=== PATIENT | female | born 1950 | race Caucasian/White ===

== ENCOUNTER 2022-12-19 09:30 | Outpatient (REF) | payer MEDICARE, SELFPAY | END 2022-12-19 09:31 | disposition home or self-care (01) | LOC: HO.HOSX 09:30 | PROVIDERS: Visit Provider Physical Medicine & Rehabilitation | DX: M47.816 Spondylosis without myelopathy or radiculopathy, lumbar region (principal); M53.3 Sacrococcygeal disorders, not elsewhere classified; M79.18 Myalgia, other site | CPT/HCPCS: 20553; 72100 ==

== ENCOUNTER 2022-12-25 10:15 | Outpatient (AMB) | payer MEDICARE, SELFPAY ==
--- NOTE | 2022-12-25 10:17 | MHC.OFFVIS ---
Intake Vital Signs 12/25/22 10:24 Height 5 ft 2 in Weight 107 lb 4 oz BMI 19.6 BP 140/76 H Blood Pressure Location Lt brachial Position Sitting Respiration 14 Pulse 75 Pulse Source Pulse Oximeter Pulse Oximetry (%) 97 Oxygen Delivery Method Room Air Intake Visit Reasons: SIJ DISCUSSION/REF BY ORTHO Intake Note: patient comes in for initial visit was referred by orthopedics. Pain level today is 6/10. Allergies No Known Allergies Allergy (Verified 12/25/22 10:20) HPI HPI Comments History of Present Illness Details Oanh is very pleasant and very nice 72 years old female who presented in my office with complains on pain in the lower back with radiation to the bilateral lower extremities more on the right and less on the left. She reports her pain is exacerbated by prolonged sitting and riding in the car and she reports her pain getting worse with flexing back forwards. She reports that from time to time she feels radiation of the pain all the way down to right foot on the posterior surface of the right lower extremity. She is legally blind. She reports her pain level 5/7 out of 10. She can not sleep normally because of her pain she has difficulty to perform some of the daily activities he can take care of herself but she cannot function normally. She is retired individual. She has retinitis pigmentosa. Weather changes in movements aggravate her pain heat applications and call applications as well as topical medications make her pain better. She reports pain most severe in the morning in afternoon and this severe at the night time. In terms of tissue damage she reports her Jens as pulsing, pounding, jumping, shooting, pinching, crushing, tugging, ranging, tingling, stinging, dull, heavy, spreading, piercing. She had x-ray of her lumbar spine results of which are not available for us she went for consultation to PM&R doctor Denys who referred this patient for sacroiliac joint injection in this office. Her past medical history significant for kidney stones and asthma as well as arthritis she is suffering as above from retinitis pigmentosa. Her past surgical history significant for cataract surgery 4 years ago and kidney surgery to remove kidney stones. Social history she is retired individual she stop smoking cigarettes long time ago. Smoking 1/3 of a pack a day. She drinks beer or wine 3 times a week, she drinks coffee or caffeinated beverages to cups in the morning. She denies recreational drugs. 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 Review of Systems Const Reports no additional complaints Eyes Reports as per HPI and Reports loss of vision ENT Reports no additional complaints and Reports Normal hearing present Card Reports no additional complaints Resp Reports as per HPI GI Reports no additional complaints Reports as per HPI Musc Reports as per HPI Neuro Reports no additional complaints, Reports Normal hearing present, Denies Abnormal speech present, Denies confusion, Reports loss of vision and Denies Sensory deficit (Neuro) Psych Reports no additional complaints and Denies confusion Physical Exam Vital Signs: Last Vital Signs Pulse 75 12/25/22 10:24 Resp 14 12/25/22 10:24 BP 140/76 H 12/25/22 10:24 Pulse Ox 97 12/25/22 10:24 Oxygen Delivery Method Room Air 12/25/22 10:24 BMI result Body Mass Index 19.6 Const General: no acute distress; No confusion Orientation/consciousness: patient oriented x3 and No confusion Eyes General: appearance normal, both eyes and all related structures Direct Ophthalmoscopy: retinal abnormality (Retinitis pigmentosa) Neck Neck: Yes full ROM Chest Chest palpation & inspection: normal inspection of the chest Resp Effort & Inspection: normal respiratory effort, able to speak in complete sentences, normal respiratory pattern, no audible wheezes and no cough Cardio Jugular venous distension: no JVD GI Inspection: Yes normal to inspection Back/Spine/Pelvis Other: The patient is able to stand on bilateral tiptoes with support she was able to stand on bilateral heels without difficulty with support. She is able to flex herself forward and backwards to the great extension however she reports pain with flexing forward aggravated more the flexing backwards. Right Tejas test positive however [place] and is negative bilaterally positive pelvic thrust test on the right. The SLR bilaterally negative: Patient reports discomfort in posterior thigh but no discomfort in the back. Dorsiflexion of the bilateral feet at this moment does not cause pain aggravation. However patient reports that sometimes and it is unpredictable when she feels some shooting pain going all the way down to her feet. She reports tenderness on palpation on bilateral sacroiliac joints more on the right and less on the left. Pelvis destruction test is negative bilaterally. Pelvis compression test is negative bilaterally. Stinchfield test is positive on the right. Lateral rotation of the hip bone does not cause a discomfort however she feels pain radiating down the leg with medial rotation of the hip bone. She feels it more on the right and does not feel much of the sensation on the left with this maneuver. Valsalva maneuver does not aggravate her pain. Neuro General: patient oriented x3, gait normal and No confusion Cranial nerves: Yes CN's II-XII intact bilaterally, Yes Normal hearing present and Yes Ability to bilaterally elevate shoulders present Speech: No Abnormal speech present Gait exam (Neuro): Normal gait present Motor exam (neuro): 5/5 motor strength present throughout Sensory Exam: No Sensory deficit (Neuro) Extrem General: No pedal edema Psych Speech and movement: Normal speech and movement present Affect: normal affect Attitude: cooperative Thought process: Normal thought process present Thought content: Normal thought content present Insight: Good insight present (Psych) Judgement: Good judgement present (Psych) Assessment & Plan Assessment & Plan (1) Sacroiliac joint dysfunction of right side: Code(s): M53.3 - Sacrococcygeal disorders, not elsewhere classified (2) Lumbar spondylosis: Code(s): M47.816 - Spondylosis without myelopathy or radiculopathy, lumbar region (3) Sacroiliac joint dysfunction of left side: Code(s): M53.3 - Sacrococcygeal disorders, not elsewhere classified (4) Sacroiliitis: Code(s): M46.1 - Sacroiliitis, not elsewhere classified (5) Vertebrogenic low back pain: Code(s): M54.51 - Vertebrogenic low back pain (6) Piriformis syndrome of right side: Code(s): G57.01 - Lesion of sciatic nerve, right lower limb Plan Patient reports that she is tired of her chronic pain. She does not want to consider starting chronic opioid therapy with primary care physician. She cannot take NSAIDs she reports GI discomfort with her pain. She thinks that she can try Celebrex for her pain. We will start her on 100 mg b.i.d.. I will schedule this patient for diagnostic bilateral sacroiliac joint injection. I will examine this patient after the diagnostic injection. From her history vertebra genic pain might be suspected. I will send her for the MRI of the lumbar spine to assess Modic type changes. I will schedule this patient for diagnostic right piriformis muscle injection older sound guided after will complete bilateral diagnostic sacroiliac joint injection and if there is no significant improvement after the diagnostic bilateral sacroiliac joint injection. If there is no changes after diagnostic sacroiliac joint injection but MRI demonstrates Modic 1 Modic type 2 changes in the lower lumbar spine I will consider intercept procedure for the patient. Orders: Orders MR lumbar spine wo con Today M47.816 - Spondylosis without myelopathy or radiculopathy, lumbar region, M54.51 - Vertebrogenic low back pain Medications: New celecoxib (Celebrex) 100 mg PO BID 60 caps 8RF 30 days Coding Level of Care Code New Pt Level 4 (67714) Diagnoses Sacroiliac joint dysfunction of right side M53.3 Lumbar spondylosis M47.816 Sacroiliac joint dysfunction of left side M53.3 Sacroiliitis M46.1 Vertebrogenic low back pain M54.51 Piriformis syndrome of right side G57.01
[2022-12-25 10:24] VITALS: BP 140/76; PULSE 75; RESP 14; O2SAT 97; BMI 19.6
== END 2022-12-25 11:15 | disposition home or self-care (01) ==
PROVIDERS: PCP Internal Medicine; Visit Provider Anesthesiology
DX: M53.3 Sacrococcygeal disorders, not elsewhere classified (principal); M47.816 Spondylosis without myelopathy or radiculopathy, lumbar region; M46.1 Sacroiliitis, not elsewhere classified; M54.51 Vertebrogenic low back pain; G57.01 Lesion of sciatic nerve, right lower limb
CPT/HCPCS: 99204; 99214

== ENCOUNTER → 2022-12-25 10:15 | Outpatient (BNVA) | payer MEDICARE, SELFPAY | PROVIDERS: PCP Internal Medicine; Visit Provider Anesthesiology ==

== ENCOUNTER 2023-01-07 06:06 | Outpatient (REF) | payer MEDICARE, SELFPAY ==
--- NOTE | ~2023-01-07 | FL_ITS ---
EXAMINATION: XR FLUOROSCOPY WITH IMAGES CLINICAL INFORMATION: Sacrococcygeal disorders, not elsewhere classified. Bilateral SI joint injection. COMPARISON: None available. TECHNIQUE: Fluoroscopy Supervised By: Dr. Ron Spears. Fluoroscopy Time: 0.2 minutes. Cumulative Dose: 1.37 mGy. DAP: 0.0238 Gycm2. Images: 2. FINDINGS: Images demonstrate needle placement and contrast injection over the bilateral sacroiliac joints FL/FL guidance in treatment room IMPRESSION: Fluoroscopy guidance for pain management procedure
== END 2023-01-07 06:07 | disposition home or self-care (01) ==
LOC: CF 06:06
PROVIDERS: Visit Provider Anesthesiology
DX: M53.3 Sacrococcygeal disorders, not elsewhere classified (principal); M47.816 Spondylosis without myelopathy or radiculopathy, lumbar region; M46.1 Sacroiliitis, not elsewhere classified; M54.51 Vertebrogenic low back pain; G57.01 Lesion of sciatic nerve, right lower limb
CPT/HCPCS: 27096; J2795; Q9967

== ENCOUNTER 2023-01-07 08:57 | Outpatient (AMB) | payer MEDICARE, SELFPAY ==
--- NOTE | 2023-01-07 09:01 | MHC.OFFVIS ---
Intake Vital Signs 01/07/23 09:02 01/07/23 10:32 Height 5 ft 2 in 5 ft 2 in Weight 107 lb 107 lb BMI 19.6 19.6 BP 128/82 118/70 Blood Pressure Location Lt brachial Rt brachial Position Sitting Respiration 14 14 Pulse 74 82 Pulse Source Pulse Oximeter Pulse Oximeter Pulse Oximetry (%) 98 95 Oxygen Delivery Method Room Air Room Air Comment Pre-Op Post Op Intake Visit Reasons: John DX SIJ injection Allergies No Known Allergies Allergy (Verified 12/25/22 10:20) COUNT INCLUDES THE [facility] Medical History (Updated 12/25/22 @ 12:58 by Ron Spears MD) Sacroiliac joint dysfunction of right side Lumbar spondylosis Sacroiliac joint dysfunction of left side Social History (Updated 12/19/22 @ 10:41 by SRIDHAR Mark) Current occupational status: retired 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 Physical Exam Vital Signs: Last Vital Signs Pulse 74 01/07/23 09:02 Resp 14 01/07/23 09:02 BP 128/82 01/07/23 09:02 Pulse Ox 98 01/07/23 09:02 Oxygen Delivery Method Room Air 01/07/23 09:02 BMI result Body Mass Index 19.6 Assessment & Plan Assessment & Plan (1) Sacroiliac joint dysfunction of right side: Code(s): M53.3 - Sacrococcygeal disorders, not elsewhere classified (2) Lumbar spondylosis: Code(s): M47.816 - Spondylosis without myelopathy or radiculopathy, lumbar region (3) Sacroiliac joint dysfunction of left side: Code(s): M53.3 - Sacrococcygeal disorders, not elsewhere classified Plan: Bilateral diagnostic sacroiliac joint injection Informed consent was explained thoroughly to the patient. All questions about benefits and risks for the procedure were answered. Patient came to the operating room and was positioned prone on the operating table with the pillow under the pelvis. [place] [employer] monitors were applied and patient was deeply sedated. Time out was performed delineating name and of the patient, allergies and the nature of the procedure. The lower back and buttocks of the patient were prepped with ChloraPrep prepped and draped with sterile utility towels. C-arm was brought over the operating field and sq picture of patient's pelvis was demonstrated on the screen. For the right joint tilting C-arm contralateral to the site of the joint the most posterior portion of the joints was superimposed with anterior silhouette of the joint. Skin was injected in the projection of the joint slightly medial to the location of the joint with 25 gauge 1/2 inch needle using local lidocaine 2% .After that 22 gauge 3 and 1/2 inch needle was driven to the right joint in tunnel vision fashion. When needle entered the joint capsule injection of the contrast was performed demonstrating intra-articular and minimally periarticular spread of the contrast. After that 4 cc. of ropivacaine 0.5% was injected into the joint. Upon completion of the injections the procedure was repeated on the left side SI joint in the mirroring fashion. Upon completion of the procedure the needle was removed, Sterile dressing was applied. Upon completion of the injection patient was taken outside of the operating room to the recovery room where recovered uneventfully. (4) Sacroiliitis: Code(s): M46.1 - Sacroiliitis, not elsewhere classified (5) Vertebrogenic low back pain: Code(s): M54.51 - Vertebrogenic low back pain (6) Piriformis syndrome of right side: Code(s): G57.01 - Lesion of sciatic nerve, right lower limb Plan Patient reports that she is tired of her chronic pain. She does not want to consider starting chronic opioid therapy with primary care physician. She cannot take NSAIDs she reports GI discomfort with her pain. She thinks that she can try Celebrex for her pain. We will start her on 100 mg b.i.d.. I will schedule this patient for diagnostic bilateral sacroiliac joint injection. I will examine this patient after the diagnostic injection. From her history vertebra genic pain might be suspected. I will send her for the MRI of the lumbar spine to assess Modic type changes. I will schedule this patient for diagnostic right piriformis muscle injection older sound guided after will complete bilateral diagnostic sacroiliac joint injection and if there is no significant improvement after the diagnostic bilateral sacroiliac joint injection. If there is no changes after diagnostic sacroiliac joint injection but MRI demonstrates Modic 1 Modic type 2 changes in the lower lumbar spine I will consider intercept procedure for the patient. Orders: Orders FL guidance in treatment room Today M53.3 - Sacrococcygeal disorders, not elsewhere classified Coding Level of Care Code Procedure Only Diagnoses Sacroiliac joint dysfunction of right side M53.3 Lumbar spondylosis M47.816 Sacroiliac joint dysfunction of left side M53.3 Sacroiliitis M46.1 Vertebrogenic low back pain M54.51 Piriformis syndrome of right side G57.01
[2023-01-07 09:02] VITALS: BP 128/82; PULSE 74; RESP 14; O2SAT 98; BMI 19.6
[2023-01-07 10:32] VITALS: BP 118/70; PULSE 82; RESP 14; O2SAT 95; BMI 19.6
== END 2023-01-07 10:30 | disposition home or self-care (01) ==
LOC: HO.PMCPRC 08:57
PROVIDERS: PCP Internal Medicine; Visit Provider Anesthesiology
DX: M46.1 Sacroiliitis, not elsewhere classified (principal); M53.3 Sacrococcygeal disorders, not elsewhere classified; M47.816 Spondylosis without myelopathy or radiculopathy, lumbar region; M54.51 Vertebrogenic low back pain; G57.01 Lesion of sciatic nerve, right lower limb
CPT/HCPCS: 27096

== ENCOUNTER 2023-01-15 10:07 | Outpatient (AMB) | payer MEDICARE, SELFPAY ==
[2023-01-15 10:12] VITALS: BP 129/69; PULSE 75; RESP 12; O2SAT 96; BMI 19.4
--- NOTE | 2023-01-15 10:12 | A.OFFVIS_ITS ---
Intake Vital Signs 01/15/23 10:12 Height 5 ft 2 in Weight 106 lb BMI 19.4 BP 129/69 Blood Pressure Location Lt brachial Position Sitting Respiration 12 Pulse 75 Pulse Source Pulse Oximeter Pulse Oximetry (%) 96 Oxygen Delivery Method Room Air Intake Visit Reasons: S/p Dx SIJ Inj 01/07/23 /Confirmed Allergies No Known Allergies Allergy (Verified 01/15/23 10:13) Medication List - Last Reconciled 01/15/23 by Korina Duarte LPN albuterol sulfate 90 mcg/actuation 1 puff inhalation QID celecoxib (Celebrex) 100 mg PO BID 30 days cetirizine (Zyrtec) 10 mg PO DAILY PRN escitalopram oxalate (Lexapro) 10 mg PO DAILY fluticasone propionate 50 mcg/actuation 1 spray intranasal DAILY trazodone 100 mg PO BEDTIME PRN HPI HPI Comments History of Present Illness Details Oanh is back in my office to discuss the results of bilateral diagnostic sacroiliac joint injection. She reported that the injection eliminated her pain immediately after procedure, she felt 0/10 pain for the 1st hour, 2-3 hours after the procedure she felt pain only 1 to 2/10. She reports that 4th and 5th our the pain got exacerbated very slightly but remain in very low numbers until the 6 and 7 tower when the pain became 5 to 6/10. Next day after the procedure as well as 3 days in a row she felt excellent pain relief, she felt excellent mobility she was able to perform duties she had difficulty to perform before the injection. She also reported that her sleep became very good during this 3 days. It looks like that her pain generator is bilateral sacroiliac joints. We had prolonged discussion about sacroiliac joints benito tment modalities. I offered her: Steroid injections in sacroiliac joints, sacroiliac joint innervation stimulation and sacroiliac joint stabilization with fusion. The patient due to social circumstances cannot commit herself for 12 weeks of mobility limitation for fusion. She might consider in the future PNS curonix, for which she needs to go for psychological evaluation. Sacroiliac joint stabilization and fusion would require her to go for MRI of the lumbar spine which is already scheduled and it would require her to go for CT scan of the pelvis which can be scheduled for her in the future. Benefits and risks of which procedure was carefully explained to the patient. The patient stated that sacroiliac joint fusion is out of question because it will give her very long period of recovery. She decided to go for bilateral steroid injection of sacroiliac joints. We also will send her to psychological evaluation just in case the steroid injections will not be working for prolonged period of time. Her ophtalmologist does not see steroid being contraindicated for retinitis pigmentosa. Prior: very pleasant and very nice 72 years old female who presented in my office with complains on pain in the lower back with radiation to the bilateral lower extremities more on the right and less on the left. She reports her pain is exacerbated by prolonged sitting and riding in the car and she reports her pain getting worse with flexing back forwards. She reports that from time to time she feels radiation of the pain all the way down to right foot on the posterior surface of the right lower extremity. She is legally blind. She reports her pain level 5/7 out of 10. She has retinitis pigmentosa. She had x-ray of her lumbar spine results of which are not available for us she went for consultation to PM&R doctor Denys who referred this patient for sacroiliac joint injection in this office. Her past medical history significant for kidney stones and asthma as well as arthritis she is suffering as above from retinitis pigmentosa. Her past surgical history significant for cataract surgery 4 years ago and kidney surgery to remove kidney stones. Social history she is retired individual she stop smoking cigarettes long time ago. Smoking 1/3 of a pack a day. She drinks beer or wine 3 times a week, she drinks coffee or caffeinated beverages to cups in the morning. She denies recreational drugs. 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 Review of Systems Const All systems reviewed & are unremarkable except as noted in HPI and below ENT Reports Normal hearing present Neuro Reports Normal hearing present, Denies Abnormal speech present, Denies confusion and Denies Sensory deficit (Neuro) Psych Denies confusion Physical Exam Vital Signs: Last Vital Signs Pulse 75 01/15/23 10:12 Resp 12 01/15/23 10:12 BP 129/69 01/15/23 10:12 Pulse Ox 96 01/15/23 10:12 Oxygen Delivery Method Room Air 01/15/23 10:12 BMI result Body Mass Index 19.4 Const General: no acute distress; No confusion Orientation/consciousness: patient oriented x3 and No confusion Eyes General: appearance normal, both eyes and all related structures Direct Ophthalmoscopy: retinal abnormality (Retinitis pigmentosa) Neck Neck: Yes full ROM Chest Chest palpation & inspection: normal inspection of the chest Resp Effort & Inspection: normal respiratory effort, able to speak in complete sentences, normal respiratory pattern, no audible wheezes and no cough Cardio Jugular venous distension: no JVD GI Inspection: Yes normal to inspection Back/Spine/Pelvis Other: The patient is able to stand on bilateral tiptoes with support she was able to stand on bilateral heels without difficulty with support. She is able to flex herself forward and backwards to the great extension however she reports pain with flexing forward aggravated more the flexing backwards. Right Tejas test positive however [place] and is negative bilaterally positive pelvic thrust test on the right. The SLR bilaterally negative: Patient reports discomfort in posterior thigh but no discomfort in the back. Dorsiflexion of the bilateral feet at this moment does not cause pain aggravation. However patient reports that sometimes and it is unpredictable when she feels some shooting pain going all the way down to her feet. She reports tenderness on palpation on bilateral sacroiliac joints more on the right and less on the left. Pelvis destruction test is negative bilaterally. Pelvis compression test is negative bilaterally. Stinchfield test is positive on the right. Lateral rotation of the hip bone does not cause a discomfort however she feels pain radiating down the leg with medial rotation of the hip bone. She feels it more on the right and does not feel much of the sensation on the left with this maneuver. Valsalva maneuver does not aggravate her pain. Neuro General: patient oriented x3, gait normal and No confusion Cranial nerves: Yes CN's II-XII intact bilaterally, Yes Normal hearing present and Yes Ability to bilaterally elevate shoulders present Speech: No Abnormal speech present Gait exam (Neuro): Normal gait present Motor exam (neuro): 5/5 motor strength present throughout Sensory Exam: No Sensory deficit (Neuro) Extrem General: No pedal edema Psych Speech and movement: Normal speech and movement present Affect: normal affect Attitude: cooperative Thought process: Normal thought process present Thought content: Normal thought content present Insight: Good insight present (Psych) Judgement: Good judgement present (Psych) Assessment & Plan Assessment & Plan (1) Sacroiliac joint dysfunction of right side: Code(s): M53.3 - Sacrococcygeal disorders, not elsewhere classified (2) Lumbar spondylosis: Code(s): M47.816 - Spondylosis without myelopathy or radiculopathy, lumbar region (3) Sacroiliac joint dysfunction of left side: Code(s): M53.3 - Sacrococcygeal disorders, not elsewhere classified (4) Sacroiliitis: Code(s): M46.1 - Sacroiliitis, not elsewhere classified (5) Vertebrogenic low back pain: Code(s): M54.51 - Vertebrogenic low back pain (6) Piriformis syndrome of right side: Code(s): G57.01 - Lesion of sciatic nerve, right lower limb (7) Pain of both sacroiliac joints: Code(s): M53.3 - Sacrococcygeal disorders, not elsewhere classified Plan Patient reports that she is tired of her chronic pain. She does not want to consider starting chronic opioid therapy with primary care physician. I will schedule this patient for therapeutic bilateral sacroiliac joint injection. I will schedule her for psychological evaluation in preparation for PNS Q running X MRI will be evaluated for vertebra genic pain generators. It also might be instrumental for us if we will decide to go for bilateral fusion. Patient Instructions: I here by testify that I spent 40 minutes in conversation with this patient as well as planning her care and organizing this note. Coding Level of Care Code Est Pt Level 5 (76213) Diagnoses Sacroiliac joint dysfunction of right side M53.3 Lumbar spondylosis M47.816 Sacroiliac joint dysfunction of left side M53.3 Sacroiliitis M46.1 Vertebrogenic low back pain M54.51 Piriformis syndrome of right side G57.01 Pain of both sacroiliac joints M53.3
== END 2023-01-15 10:45 | disposition home or self-care (01) ==
PROVIDERS: PCP Internal Medicine; Visit Provider Anesthesiology
DX: M53.3 Sacrococcygeal disorders, not elsewhere classified (principal); M47.816 Spondylosis without myelopathy or radiculopathy, lumbar region; M46.1 Sacroiliitis, not elsewhere classified; M54.51 Vertebrogenic low back pain; G57.01 Lesion of sciatic nerve, right lower limb
CPT/HCPCS: 99215

== ENCOUNTER → 2023-01-15 10:07 | Outpatient (BNVA) | payer MEDICARE, SELFPAY | PROVIDERS: PCP Internal Medicine; Visit Provider Anesthesiology | DX: M53.3 Sacrococcygeal disorders, not elsewhere classified (principal); M47.816 Spondylosis without myelopathy or radiculopathy, lumbar region; M46.1 Sacroiliitis, not elsewhere classified; M54.51 Vertebrogenic low back pain; G57.01 Lesion of sciatic nerve, right lower limb | CPT/HCPCS: 99212 ==

== ENCOUNTER 2023-01-28 20:02 | Outpatient (REF) | payer MEDICARE, SELFPAY ==
--- NOTE | ~2023-01-28 | MR_ITS ---
EXAMINATION: MR LUMBAR SPINE WITHOUT CONTRAST CLINICAL INFORMATION: Vertebrogenic low back pain, evaluate for Modic changes COMPARISON: Lumbar radiograph 12/19/2022 TECHNIQUE: MRI of the lumbar spine was obtained using routine sequences without the administration of intravenous contrast. FINDINGS: This examination assumes the presence of 5 lumbar type vertebral bodies. For the purposes of this examination, the L5-S1 intervertebral disc space is visualized on axial series 6 image 23. The normal lumbar lordosis is preserved. Dextrocurvature of the mid/upper lumbar spine with trace levocurvature of the lower lumbar spine. There is grade 1 anterolisthesis of L3-L4 and L4-L5. Lumbar vertebral body heights are maintained. There are Modic type I endplate changes along the right aspect of L5-S1 additional Modic type I/II endplate changes at L2-L3 and L1-L2. The conus medullaris and cauda equina nerve roots are unremarkable; the conus terminates at the level of L1. Degenerative changes at T9-T10 evaluated on this examination. T12-L1: Left subarticular disc protrusion indents the ventral aspect of the thecal sac without significant spinal canal stenosis. The neural foramen. L1-L2: Disc bulge and osteophytic ridging with left greater than right facet arthropathy. The spinal canal is not significantly narrowed. There is moderate left greater than right neural foraminal stenosis. L2-L3: Disc bulge with left foraminal/far lateral disc protrusion. Facet arthropathy with ligamentum flavum redundancy and prominent epidural fat. The spinal canal is not significantly narrowed. The right neural foramen is patent. There is mild to moderate left neural foraminal stenosis. L3-L4: Advanced facet arthropathy with ligamentum flavum redundancy and prominent epidural fat. Grade 1 anterolisthesis with uncovering of the intervertebral disc. Disc bulge with subarticular/proximal foraminal disc protrusions. Narrowing of the lateral recesses and mild spinal canal stenosis. Moderate left neural foraminal stenosis. The right neural foramen is patent. L4-L5: Disc bulge with left foraminal disc protrusion and annular fissure. Advanced facet arthropathy with ligamentum flavum redundancy. Narrowing of the left greater than right lateral recess. Mild right neural foraminal stenosis. Moderate left neural foraminal stenosis. L5-S1: Disc bulge with right foraminal/far lateral disc protrusion. Right greater than left facet arthropathy with ligamentum flavum redundancy. Mild narrowing of the right lateral recess. The spinal canal is otherwise patent. Severe right neural foraminal stenosis with compression of the exiting right L5 nerve root. The left neural foramen is patent Subcentimeter T2 hyperintense lesion in the paranasal sinuses. MR/MR lumbar spine wo con IMPRESSION: Sigmoid curvature of the lumbar spine with asymmetric multilevel degenerative changes as described above. Right-sided endplate edema at L5-S1 is likely on the basis of scoliotic deformity. Multilevel degenerative changes as described above, most prominent at L5-S1 where there is severe right neural foraminal stenosis with compression of the exiting right L5 nerve root.
== END 2023-01-28 20:03 | disposition home or self-care (01) ==
LOC: HO.MRI 20:02
PROVIDERS: PCP Internal Medicine; Visit Provider Anesthesiology
DX: M54.51 Vertebrogenic low back pain (principal); M47.816 Spondylosis without myelopathy or radiculopathy, lumbar region
CPT/HCPCS: 72148

== ENCOUNTER → 2023-02-13 10:32 | Outpatient (BNVA) | payer MEDICARE, SELFPAY | PROVIDERS: PCP Internal Medicine; Visit Provider Nurse Practitioner Family | DX: M53.3 Sacrococcygeal disorders, not elsewhere classified (principal); M46.1 Sacroiliitis, not elsewhere classified; M54.51 Vertebrogenic low back pain; M47.26 Other spondylosis with radiculopathy, lumbar region | CPT/HCPCS: 99212 ==

== ENCOUNTER 2023-02-13 10:34 | Outpatient (AMB) | payer MEDICARE, SELFPAY ==
--- NOTE | 2023-02-13 10:38 | A.OFFVIS_ITS ---
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 She continuous to endorse bilateral sacroiliac joint pain, discogenic and left radicular pain in L5-S1 distribution. Pain is worse with bending, flexing forward or walking. Worst pain is rated at 9/10 and least pain is rated at 5-6/10. Patient states she has 3 dogs who she takes care of on daily basis and this requires frequent bending and lifting. She notes her pets are not big and weigh less than 13 lbs. She finds great kayla of caring for them and hopes to alleviate her back symptoms to be able to function better and take care of her pets. She lives at home with her who is not retired yet. Patient is scheduled for bilateral sacroiliac joint injections on 02/18/[address] Spears. MRI results are noted below and were discussed with patient today. Denies any recent cough, cold, infection, fever, bladder or bowel dysfunction, saddle anesthesia or other significant changes in medical history since last office visit. PRIOR 01/15/23 Dr. Spears: Oanh is back in my office to discuss the results of bilateral diagnostic sacroiliac joint injection. She reported that the injection eliminated her pain immediately after procedure, she felt 0/10 pain for the 1st hour, 2-3 hours after the procedure she felt pain only 1 to 2/10. She reports that 4th and 5th our the pain got exacerbated very slightly but remain in very low numbers until the 6 and 7 tower when the pain became 5 to 6/10. Next day after the procedure as well as 3 days in a row she felt excellent pain relief, she felt excellent mobility she was able to perform duties she had difficulty to perform before the injection. She also reported that her sleep became very good during this 3 days. It looks like that her pain generator is bilateral sacroiliac joints. We had prolonged discussion about sacroiliac joints treatment modalities. I offered her: Steroid injections in sacroiliac joints, sacroiliac joint innervation stimulation and sacroiliac joint stabilization with fusion. The patient due to social circumstances cannot commit herself for 12 weeks of mobility limitation for fusion. She might consider in the future PNS curonix, for which she needs to go for psychological evaluation. Sacroiliac joint stabilization and fusion would require her to go for MRI of the lumbar spine which is already scheduled and it would require her to go for CT scan of the pelvis which can be scheduled for her in the future. Benefits and risks of w hich procedure was carefully explained to the patient. The patient stated that sacroiliac joint fusion is out of question because it will give her very long period of recovery. She decided to go for bilateral steroid injection of sacroiliac joints. We also will send her to psychological evaluation just in case the steroid injections will not be working for prolonged period of time. Her ophtalmologist does not see steroid being contraindicated for retinitis pigmentosa. Prior: very pleasant and very nice 72 years old female who presented in my office with complains on pain in the lower back with radiation to the bilateral lower extremities more on the right and less on the left. She reports her pain is exacerbated by prolonged sitting and riding in the car and she reports her pain getting worse with flexing back forwards. She reports that from time to time she feels radiation of the pain all the way down to right foot on the posterior surface of the right lower extremity. She is legally blind. She reports her pain level 5/7 out of 10. She has retinitis pigmentosa. She had x-ray of her lumbar spine results of which are not available for us she went for consultation to PM&R doctor Denys who referred this patient for sacroiliac joint injection in this office. Her past medical history significant for kidney stones and asthma as well as arthritis she is suffering as above from retinitis pigmentosa. Her past surgical history significant for cataract surgery 4 years ago and kidney surgery to remove kidney stones. Social history she is retired individual she stop smoking cigarettes long time ago. Smoking 1/3 of a pack a day. She drinks beer or wine 3 times a week, she drinks coffee or caffeinated beverages to cups in the morning. She denies recreational drugs. 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 Alert and oriented. Mood and affect appropriate. Follows and participates in conversation appropriately. Respiratory effort is unlabored. No cough. Able to transition from sit to stand unassisted. Ambulates with bilaterally normal heel strike and toe off, except imbalance with LLE due to pain and weakness. Back/Spine/Pelvis Cervical Spine: cervical ROM normal and No Cervical spine tenderness Thoracic/Lumbar Spine: thoracic and lumbar spine normal to inspection, Lasegue's sign positive on the left and localized, pain with thoraco-lumbar ROM, paraspinal muscle tenderness, thoraco-lumbar ROM limited, No thoracic spinal tenderness, lumbar spinal tenderness and straight leg raise positive left at 50 degrees Pelvis: buttock tenderness bilaterally Sacroiliac joints: bilaterally (+Tejas's, SI distraction, side thrust and compression positive bilat L>R) tender to palpation Results Reviewed Results Reviewed: MR LUMBAR SPINE WITHOUT CONTRAST 02/02/23 CLINICAL INFORMATION: Vertebrogenic low back pain, evaluate for Modic changes COMPARISON: Lumbar radiograph 12/19/2022 TECHNIQUE: MRI of the lumbar spine was obtained using routine sequences without the administration of intravenous contrast. FINDINGS: This examination assumes the presence of 5 lumbar type vertebral bodies. For the purposes of this examination, the L5-S1 intervertebral disc space is visualized on axial series 6 image 23. The normal lumbar lordosis is preserved. Dextrocurvature of the mid/upper lumbar spine with trace levocurvature of the lower lumbar spine. There is grade 1 anterolisthesis of L3-L4 and L4-L5. Lumbar vertebral body heights are maintained. There are Modic type I endplate changes along the right aspect of L5-S1 additional Modic type I/II endplate changes at L2-L3 and L1-L2. The conus medullaris and cauda equina nerve roots are unremarkable; the conus terminates at the level of L1. Degenerative changes at T9-T10 evaluated on this examination. T12-L1: Left subarticular disc protrusion indents the ventral aspect of the thecal sac without significant spinal canal stenosis. The neural foramen. L1-L2: Disc bulge and osteophytic ridging with left greater than right facet arthropathy. The spinal canal is not significantly narrowed. There is moderate left greater than right neural foraminal stenosis. L2-L3: Disc bulge with left foraminal/far lateral disc protrusion. Facet arthropathy with ligamentum flavum redundancy and prominent epidural fat. The spinal canal is not significantly narrowed. The right neural foramen is patent. There is mild to moderate left neural foraminal stenosis. L3-L4: Advanced facet arthropathy with ligamentum flavum redundancy and prominent epidural fat. Grade 1 anterolisthesis with uncovering of the intervertebral disc. Disc bulge with subarticular/proximal foraminal disc protrusions. Narrowing of the lateral recesses and mild spinal canal stenosis. Moderate left neural foraminal stenosis. The right neural foramen is patent. L4-L5: Disc bulge with left foraminal disc protrusion and annular fissure. Advanced facet arthropathy with ligamentum flavum redundancy. Narrowing of the left greater than right lateral recess. Mild right neural foraminal stenosis. Moderate left neural foraminal stenosis. L5-S1: Disc bulge with right foraminal/far lateral disc protrusion. Right greater than left facet arthropathy with ligamentum flavum redundancy. Mild narrowing of the right lateral recess. The spinal canal is otherwise patent. Severe right neural foraminal stenosis with compression of the exiting right L5 nerve root. The left neural foramen is patent Subcentimeter T2 hyperintense lesion in the paranasal sinuses. IMPRESSION: Sigmoid curvature of the lumbar spine with asymmetric multilevel degenerative changes as described above. Right-sided endplate edema at L5-S1 is likely on the basis of scoliotic deformity. Multilevel degenerative changes as described above, most prominent at L5-S1 where there is severe right neural foraminal stenosis with compression of the exiting right L5 nerve root. Assessment & Plan Assessment & Plan (1) Lumbar spondylosis: Code(s): M47.816 - Spondylosis without myelopathy or radiculopathy, lumbar region (2) Sacroiliitis: Code(s): M46.1 - Sacroiliitis, not elsewhere classified (3) Lumbar radiculopathy: Code(s): M54.16 - Radiculopathy, lumbar region (4) Vertebrogenic low back pain: Code(s): M54.51 - Vertebrogenic low back pain (5) Pain of both sacroiliac joints: Code(s): M53.3 - Sacrococcygeal disorders, not elsewhere classified Plan Lumbar spine MRI results were reviewed with patient today in great detail and are noted above. Her low back pain is consistent with sacroiliac joint pain, vertebrogenic and left radicular pain components. Patient will proceed with bilateral therapeutic sacroiliac joint injections as planned for 02/18/[address] Spears. We discussed Left L5-S1 TFESI injection for left radicular symptoms as next steps after SIJ injections. For her axial low back pain and degenerative changes on the endplates with Modic , she is a good candidate for possible Intracept procedure. There are Modic type I endplate changes along the right aspect of L5-S1 additional Modic type I/II endplate changes at L2-L3 and L1-L2. She also has notable multiple level ligament hypertrophy, we discussed MILD procedure too. Short script sent for oxycodone for moderate-severe pain. Patient previously tolerated tramadol and Percocet prescribed by her PCP for significant pain. Side effects and precautions were discussed with patient. All questions were answered and the patient is in agreement with the treatment plan. Follow up after SIJ injections with Dr. Spears and sooner as needed. Medications: New oxycodone Partial Fill upon patient request. 5 mg PO Q8H 5 days PRN 15 tabs 0RF pain M46.1 - Sacroiliitis, not elsewhere classified, M47.816 - Spondylosis without myelopathy or radiculopathy, lumbar region, M54.16 - Radiculopathy, lumbar region Coding Level of Care Code Est Pt Level 4 (22022) Diagnoses Lumbar spondylosis M47.816 Sacroiliitis M46.1 Lumbar radiculopathy M54.16 Vertebrogenic low back pain M54.51 Pain of both sacroiliac joints M53.3
[2023-02-13 10:49] VITALS: BP 150/65; PULSE 65; O2SAT 98; BMI 20.1
== END 2023-02-13 11:20 | disposition home or self-care (01) ==
PROVIDERS: PCP Internal Medicine; Visit Provider Nurse Practitioner Family
DX: M47.816 Spondylosis without myelopathy or radiculopathy, lumbar region (principal); M46.1 Sacroiliitis, not elsewhere classified; M54.16 Radiculopathy, lumbar region; M54.51 Vertebrogenic low back pain; M53.3 Sacrococcygeal disorders, not elsewhere classified
CPT/HCPCS: 99214

== ENCOUNTER 2023-02-18 06:07 | Outpatient (REF) | payer MEDICARE, SELFPAY ==
--- NOTE | ~2023-02-18 | FL_ITS ---
EXAMINATION: XR FLUOROSCOPY WITH IMAGES CLINICAL INFORMATION: Sacrococcygeal disorders, not elsewhere classified. COMPARISON: None available. TECHNIQUE: Fluoroscopy Supervised By: Dr. Ron Spears. Fluoroscopy Time: 0.3 minutes. Cumulative Dose: 1.29 mGy. DAP: 0.0162 Gycm2. Images: 2. FINDINGS: Images demonstrate needle placement and contrast injection over the bilateral sacroiliac joints FL/FL guidance in treatment room IMPRESSION: Fluoroscopy guidance for bilateral sacroiliac joint injection.
== END 2023-02-18 06:08 | disposition home or self-care (01) ==
LOC: CF 06:07
PROVIDERS: Visit Provider Anesthesiology
DX: M53.3 Sacrococcygeal disorders, not elsewhere classified (principal); M47.26 Other spondylosis with radiculopathy, lumbar region; M46.1 Sacroiliitis, not elsewhere classified; M54.51 Vertebrogenic low back pain
CPT/HCPCS: 27096; J2795; J3301; Q9967

== ENCOUNTER 2023-02-18 09:30 | Outpatient (AMB) | payer MEDICARE, SELFPAY ==
[2023-02-18 09:45] VITALS: BP 118/70; PULSE 64; RESP 14; O2SAT 96; BMI 20.1
--- NOTE | 2023-02-18 09:45 | MHC.OFFVIS ---
Intake Vital Signs 02/18/23 09:45 02/18/23 10:50 Height 5 ft 2 in 5 ft 2 in Weight 110 lb 110 lb BMI 20.1 20.1 BP 118/70 110/82 Blood Pressure Location Rt brachial Lt brachial Position Sitting Sitting Respiration 14 14 Pulse 64 62 Pulse Source Pulse Oximeter Pulse Oximeter Pulse Oximetry (%) 96 97 Oxygen Delivery Method Room Air Room Air Comment pre-op post-op Intake Visit Reasons: BILAT SIJ STEROID INJ/LOCAL Allergies No Known Allergies Allergy (Verified 02/18/23 10:50) PFSH Medical History (Updated 02/13/23 @ 11:14 by CECIL Arellano) Sacroiliac joint dysfunction of right side Lumbar spondylosis Sacroiliac joint dysfunction of left side Social History (Updated 12/19/22 @ 10:41 by Suzanne Sultana [facility]) Current occupational status: retired 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 All questions about benefits and risks for the procedure were answered. Patient came to the operating room and was positioned prone on the operating table with the pillow under the pelvis Time out was performed delineating name and of the patient, allergies and the nature of the procedure. The lower back and buttocks of the patient were prepped with ChloraPrep prepped and draped with sterile utility towels. C-arm was brought over the operating field and sq picture of patient's pelvis was demonstrated on the screen. For the right joint tilting C-arm contralateral to the site of the joint the most posterior portion of the joints was superimposed with anterior silhouette of the joint. Skin was injected in the projection of the joint slightly medial to the location of the joint with 25 gauge 1/2 inch needle using local lidocaine 2% .After that 22 gauge 3 and 1/2 inch needle was driven to the right joint in tunnel vision fashion. When needle entered the joint capsule injection of the contrast was performed demonstrating intra-articular and minimally periarticular spread of the contrast. After that 4 cc. of ropivacaine 0.5% mixed with Kenalog 40 mg was injected into the joint. Upon completion of the injections the needle was removed the procedure was repeated on the left side in a mirroring fashion. After full completion of the procedure patient was taken outside of the operating room to the recovery room where recovered uneventfully. (3) Lumbar radiculopathy: Code(s): M54.16 - Radiculopathy, lumbar region (4) Vertebrogenic low back pain: Code(s): M54.51 - Vertebrogenic low back pain (5) Pain of both sacroiliac joints: Code(s): M53.3 - Sacrococcygeal disorders, not elsewhere classified Plan Lumbar spine MRI results were reviewed with patient today in great detail and are noted above. Her low back pain is consistent with sacroiliac joint pain, vertebrogenic and left radicular pain components. Patient will proceed with bilateral therapeutic sacroiliac joint injections as planned for 02/18/[address] Spears. We discussed Left L5-S1 TFESI injection for left radicular symptoms as next steps after SIJ injections. For her axial low back pain and degenerative changes on the endplates with Modic , she is a good candidate for possible Intracept procedure. There are Modic type I endplate changes along the right aspect of L5-S1 additional Modic type I/II endplate changes at L2-L3 and L1-L2. She also has notable multiple level ligament hypertrophy, we discussed MILD procedure too. Short script sent for oxycodone for moderate-severe pain. Patient previously tolerated tramadol and Percocet prescribed by her PCP for significant pain. Side effects and precautions were discussed with patient. All questions were answered and the patient is in agreement with the treatment plan. Follow up after SIJ injections with Dr. Spears and sooner as needed. Orders: Orders FL guidance in treatment room 02/18/23 M53.3 - Sacrococcygeal disorders, not elsewhere classified Coding Level of Care Code Procedure Only Diagnoses Lumbar spondylosis M47.816 Sacroiliitis M46.1 Lumbar radiculopathy M54.16 Vertebrogenic low back pain M54.51 Pain of both sacroiliac joints M53.3
[2023-02-18 10:50] VITALS: BP 110/82; PULSE 62; RESP 14; O2SAT 97; BMI 20.1
== END 2023-02-18 10:43 | disposition home or self-care (01) ==
LOC: HO.PMCPRC 09:30
PROVIDERS: PCP Internal Medicine; Visit Provider Anesthesiology
DX: M46.1 Sacroiliitis, not elsewhere classified (principal); M53.3 Sacrococcygeal disorders, not elsewhere classified
CPT/HCPCS: 27096

== ENCOUNTER 2023-03-05 10:11 | Outpatient (AMB) | payer MEDICARE, BC, SELFPAY ==
--- NOTE | 2023-03-05 10:15 | A.OFFVIS_ITS ---
Intake Vital Signs 03/05/23 10:24 Height 5 ft 2 in Weight 109 lb 2 oz BMI 20.0 BP 130/68 Blood Pressure Location Lt brachial Position Sitting Respiration 16 Pulse 61 Pulse Source Pulse Oximeter Pulse Oximetry (%) 95 Oxygen Delivery Method Room Air Intake Visit Reasons: BILAT SIJ STEROID INJ 02/18/23 Allergies No Known Allergies Allergy (Verified 03/05/23 10:25) HPI HPI Comments History of Present Illness Details Oanh is back in my office after therapeutic bilateral sacroiliac joint injection was performed on 02/18/2023. Patient reports no help from sacroiliac joint injection. This is very unusual because her sacroiliac joint diagnostic injection was resulting in 6 hours of almost complete pain relief. Now she requests me to perform epidural steroid injection. She has right neuroforaminal stenosis L5-S1. I will offer her caudal epidural steroid injections with catheter more to the right. She also has Modic type 1 and type 2 changes in the recently performed MRI. Possibility exist to offer the patient intercept procedure if epidural steroid injection will not be helpful for this patient. She requests me to send her to physical therapy. I will do this as she requests. She continuous to endorse bilateral sacroiliac joint pain, discogenic and left radicular pain in L5-S1 distribution. Pain is worse with bending, flexing forward or walking. Worst pain is rated at 9/10 and least pain is rated at 5-6/10. She has 3 dogs who she takes care of on daily basis and this requires frequent bending and lifting. She notes her pets are not big and weigh less than 13 lbs. PRIOR : Oanh is back in my office to discuss the results of bilateral diagnostic sacroiliac joint injection. She reported that the injection eliminated her pain immediately after procedure, she felt 0/10 pain for the 1st hour, 2-3 hours after the procedure she felt pain only 1 to 2/10. She reports that 4th and 5th our the pain got exacerbated very slightly but remain in very low numbers until the 6 and 7 tower when the pain became 5 to 6/10. Next day after the procedure as well as 3 days in a row she felt excellent pain relief, she felt excellent mobility she was able to perform duties she had difficulty to perform before the injection. She also reported that her sleep became very good during this 3 days. It looks like that her pain generator is bilateral sacroiliac joints. We had prolonged discussion about sacroiliac joints treatment modalities. I offered her: Steroid injections in sacroiliac joints, sacroiliac joint innervation stimulation and sacroiliac joint stabilization with fusion. The patient due to social circumstances cannot commit herself for 12 weeks of mobility limitation for fusion. She might consider in the future PNS curonix, for which she needs to go for psychological evaluation. Sacroiliac joint stabilization and fusion would require her to go for MRI of the lumbar spine which is already scheduled and it would require her to go for CT scan of the pelvis which can be scheduled for her in the future. Benefits and risks of which procedure was carefully explained to the patient. The patient stated that sacroiliac joint fusion is out of question because it will give her very long period of recovery. She decided to go for bilateral steroid injection of sacroiliac joints. We also will send her to psychological evaluation just in case the steroid injections will not be working for prolonged period of time. Her ophtalmologist does not see steroid being contraindicated for retinitis pigmentosa. Prior: very pleasant and very nice 72 years old female who presented in my office with complains on pain in the lower back with radiation to the bilateral lower extremities more on the right and less on the left. She reports her pain is exacerbated by prolonged sitting and riding in the car and she reports her pain getting worse with flexing back forwards. She reports that from time to time she feels radiation of the pain all the way down to right foot on the posterior surface of the right lower extremity. She is legally blind. She reports her pain level 5/7 out of 10. She has retinitis pigmentosa. She had x-ray of her lumbar spine results of which are not available for us she went for consultation to PM&R doctor Denys who referred this patient for sacroiliac joint injection in this office. Her past medical history significant for kidney stones and asthma as well as arthritis she is suffering as above from retinitis pigmentosa. Her past surgical history significant for cataract surgery 4 years ago and kidney surgery to remove kidney stones. Social history she is retired individual she stop smoking cigarettes long time ago. Smoking 1/3 of a pack a day. She drinks beer or wine 3 times a week, she drinks coffee or caffeinated beverages to cups in the morning. She denies recreational drugs. 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 Alert and oriented. Mood and affect appropriate. Follows and participates in conversation appropriately. Respiratory effort is unlabored. No cough. Able to transition from sit to stand unassisted. Ambulates with bilaterally normal heel strike and toe off, except imbalance with LLE due to pain and weakness. Back/Spine/Pelvis Cervical Spine: cervical ROM normal and No Cervical spine tenderness Thoracic/Lumbar Spine: thoracic and lumbar spine normal to inspection, Lasegue's sign positive on the left and localized, pain with thoraco-lumbar ROM, paraspinal muscle tenderness, thoraco-lumbar ROM limited, No thoracic spinal tenderness, lumbar spinal tenderness and straight leg raise positive left at 50 degrees Pelvis: buttock tenderness bilaterally Sacroiliac joints: bilaterally (+Tejas's, SI distraction, side thrust and compression positive bilat L>R) tender to palpation Results Reviewed Results Reviewed: MR LUMBAR SPINE WITHOUT CONTRAST 02/02/23 CLINICAL INFORMATION: Vertebrogenic low back pain, evaluate for Modic changes COMPARISON: Lumbar radiograph 12/19/2022 TECHNIQUE: MRI of the lumbar spine was obtained using routine sequences without the administration of intravenous contrast. FINDINGS: This examination assumes the presence of 5 lumbar type vertebral bodies. For the purposes of this examination, the L5-S1 intervertebral disc space is visualized on axial series 6 image 23. The normal lumbar lordosis is preserved. Dextrocurvature of the mid/upper lumbar spine with trace levocurvature of the lower lumbar spine. There is grade 1 anterolisthesis of L3-L4 and L4-L5. Lumbar vertebral body heights are maintained. There are Modic type I endplate changes along the right aspect of L5-S1 additional Modic type I/II endplate changes at L2-L3 and L1-L2. The conus medullaris and cauda equina nerve roots are unremarkable; the conus terminates at the level of L1. Degenerative changes at T9-T10 evaluated on this examination. T12-L1: Left subarticular disc protrusion indents the ventral aspect of the thecal sac without significant spinal canal stenosis. The neural foramen. L1-L2: Disc bulge and osteophytic ridging with left greater than right facet arthropathy. The spinal canal is not significantly narrowed. There is moderate left greater than right neural foraminal stenosis. L2-L3: Disc bulge with left foraminal/far lateral disc protrusion. Facet arthropathy with ligamentum flavum redundancy and prominent epidural fat. The spinal canal is not significantly narrowed. The right neural foramen is patent. There is mild to moderate left neural foraminal stenosis. L3-L4: Advanced facet arthropathy with ligamentum flavum redundancy and prominent epidural fat. Grade 1 anterolisthesis with uncovering of the intervertebral disc. Disc bulge with subarticular/proximal foraminal disc protrusions. Narrowing of the lateral recesses and mild spinal canal stenosis. Moderate left neural foraminal stenosis. The right neural foramen is patent. L4-L5: Disc bulge with left foraminal disc protrusion and annular fissure. Advanced facet arthropathy with ligamentum flavum redundancy. Narrowing of the left greater than right lateral recess. Mild right neural foraminal stenosis. Moderate left neural foraminal stenosis. L5-S1: Disc bulge with right foraminal/far lateral disc protrusion. Right greater than left facet arthropathy with ligamentum flavum redundancy. Mild narrowing of the right lateral recess. The spinal canal is otherwise patent. Severe right neural foraminal stenosis with compression of the exiting right L5 nerve root. The left neural foramen is patent Subcentimeter T2 hyperintense lesion in the paranasal sinuses. IMPRESSION: Sigmoid curvature of the lumbar spine with asymmetric multilevel degenerative changes as described above. Right-sided endplate edema at L5-S1 is likely on the basis of scoliotic deformity. Multilevel degenerative changes as described above, most prominent at L5-S1 where there is severe right neural foraminal stenosis with compression of the exiting right L5 nerve root. Assessment & Plan Assessment & Plan (1) Lumbar spondylosis: Code(s): M47.816 - Spondylosis without myelopathy or radiculopathy, lumbar region (2) Sacroiliitis: Code(s): M46.1 - Sacroiliitis, not elsewhere classified (3) Lumbar radiculopathy: Code(s): M54.16 - Radiculopathy, lumbar region (4) Vertebrogenic low back pain: Code(s): M54.51 - Vertebrogenic low back pain (5) Pain of both sacroiliac joints: Code(s): M53.3 - Sacrococcygeal disorders, not elsewhere classified Plan Lumbar spine MRI results again were reviewed with patient today in great detail . Her low back pain is consistent with sacroiliac joint pain, vertebrogenic and left radicular pain components. Good results of diagnostic sacroiliac joint injections made us think that after all her pain is coming from sacroiliac joints. Unfortunately sacroiliac joint steroid injections resulted in no pain improvement whatsoever. For her axial low back pain and degenerative changes on the endplates with Modic , she is a good candidate for possible Intracept procedure. There are Modic type I endplate changes along the right aspect of L5-S1 additional Modic type I/II endplate changes at L2-L3 and L1-L2. She has dogs and she needs to take care of them and she would not be possible to have any procedures in next 2 months which would require significant mobility limitation. Therefore neither intercept procedure nor even more so any neuromodulation procedures would be possible for this patient. I offered her to have caudal epidural steroid injection more to the right. We agreed that I will do this procedure after 03/25/2023. I also requested clearance for administrations of the steroids from her eye doctor Dr. Vanegas. We will continue the conversation about her mobility limitations and possibility to perform procedures which would require mobility limitations sessions intercept, PNS, SCS, ITDD. Patient Instructions: I here by testify that I spent 45 minutes today in conversation with this patient, as well as on evaluating her prior medical records, as well as evaluating her images, as well as contacting her ophto doctor and requesting clearance for injection. Coding Level of Care Code Est Pt Level 5 (26387) Diagnoses Lumbar spondylosis M47.816 Sacroiliitis M46.1 Lumbar radiculopathy M54.16 Vertebrogenic low back pain M54.51 Pain of both sacroiliac joints M53.3
[2023-03-05 10:24] VITALS: BP 130/68; PULSE 61; RESP 16; O2SAT 95
== END 2023-03-05 11:05 | disposition home or self-care (01) ==
PROVIDERS: PCP Internal Medicine; Visit Provider Anesthesiology
DX: M47.816 Spondylosis without myelopathy or radiculopathy, lumbar region (principal); M46.1 Sacroiliitis, not elsewhere classified; M54.16 Radiculopathy, lumbar region; M54.51 Vertebrogenic low back pain; M53.3 Sacrococcygeal disorders, not elsewhere classified
CPT/HCPCS: 99215

== ENCOUNTER → 2023-03-05 10:11 | Outpatient (BNVA) | payer MEDICARE, BC, SELFPAY | PROVIDERS: PCP Internal Medicine; Visit Provider Anesthesiology | DX: M47.816 Spondylosis without myelopathy or radiculopathy, lumbar region (principal); M46.1 Sacroiliitis, not elsewhere classified; M54.16 Radiculopathy, lumbar region; M54.51 Vertebrogenic low back pain; M53.3 Sacrococcygeal disorders, not elsewhere classified | CPT/HCPCS: 99212 ==

== ENCOUNTER 2023-04-08 06:05 | Outpatient (REF) | payer BC, SELFPAY ==
--- NOTE | ~2023-04-08 | FL_ITS ---
EXAMINATION: XR FLUOROSCOPY WITH IMAGES CLINICAL INFORMATION: Radiculopathy lumbar region. COMPARISON: MRI lumbar spine 01/28/2023. TECHNIQUE: Fluoroscopy Supervised By: Dr. Roxanne Liu. Fluoroscopy Time: 0.4. Cumulative Dose: 3.44 mGy. DAP: 0.0431 Gycm2. Images: 2. FINDINGS: 2 images demonstrate a needle at what appears to be L4-L5 with contrast surrounding the needle in the second image. FL/FL guidance in treatment room IMPRESSION: Fluoroscopy and spot films provided during lumbar procedure.
== END 2023-04-08 06:06 | disposition home or self-care (01) ==
LOC: CF 06:05
PROVIDERS: Visit Provider Anesthesiology
DX: M47.816 Spondylosis without myelopathy or radiculopathy, lumbar region (principal); M54.16 Radiculopathy, lumbar region; M46.1 Sacroiliitis, not elsewhere classified; M54.51 Vertebrogenic low back pain; M53.3 Sacrococcygeal disorders, not elsewhere classified
CPT/HCPCS: 64483; Q9967

== ENCOUNTER 2023-04-08 07:06 | Outpatient (AMB) | payer BC, SELFPAY ==
[2023-04-08 07:18] VITALS: BP 128/64; PULSE 81; RESP 16; O2SAT 96; BMI 19.9
--- NOTE | 2023-04-08 07:18 | A.OFFVIS_ITS ---
Intake Vital Signs 04/08/23 07:18 04/08/23 08:12 Height 5 ft 2 in 5 ft 2 in Weight 109 lb 109 lb BMI 19.9 19.9 BP 128/64 130/70 Blood Pressure Location Lt brachial Lt brachial Position Sitting Sitting Respiration 16 18 Pulse 81 88 Pulse Source Pulse Oximeter Pulse Oximeter Pulse Oximetry (%) 96 95 Oxygen Delivery Method Room Air Room Air Comment Pre-Op Post-Op Intake Visit Reasons: RIGHT DIAGNOSTIC L4, L5 TFESI Allergies No Known Allergies Allergy (Verified 04/08/23 07:17) [facility] Medical History (Updated 02/13/23 @ 11:14 by CECIL Arellano) Sacroiliac joint dysfunction of right side Lumbar spondylosis Sacroiliac joint dysfunction of left side Social History (Updated 12/19/22 @ 10:41 by Suzanne Sultana [facility]) Current occupational status: retired 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 Physical Exam Vital Signs: Last Vital Signs Pulse 81 04/08/23 07:18 Resp 16 04/08/23 07:18 BP 128/64 04/08/23 07:18 Pulse Ox 96 04/08/23 07:18 Oxygen Delivery Method Room Air 04/08/23 07:18 BMI result Body Mass Index 19.9 Assessment & Plan Assessment & Plan (1) Lumbar spondylosis: Code(s): M47.816 - Spondylosis without myelopathy or radiculopathy, lumbar region (2) Sacroiliitis: Code(s): M46.1 - Sacroiliitis, not elsewhere classified (3) Lumbar radiculopathy: Code(s): M54.16 - Radiculopathy, lumbar region (4) Vertebrogenic low back pain: Code(s): M54.51 - Vertebrogenic low back pain (5) Pain of both sacroiliac joints: Code(s): M53.3 - Sacrococcygeal disorders, not elsewhere classified Plan On the request of the patient's Neurosurgeon Dr. Kandis Sapp I performed today right TFESI L5- S1. Informed consent was explained to the patient and the risks of bleeding, infection and peripheral nerve damage was explained to the patient. The patient was explained that the procedure today is diagnostic in nature to demonstrate if the nerve root compression at L5- S1 foramina is the true pain generator . The patient went to the OR and she was positioned on the operating table. Time out was performed with the patient stating her name, date of and the nature of the procedure. The lower back of the patient was prepped with chloroprep and draped with selfadhesive utility towels. C-arm was brought to the operating field and the square image of the L5 vertebra was demonstrated on the screen. 30 degree tilt to the right delineated a most prominent images of the pedicle projection and right superior articular process . Right SAP was chosen as an initial target of the injection. lateral border of the right SAP projection to the skin was injected with lidocain 1%. After that 22 g 5 inch needle was inserted through the skin wheal and in tunnel vision fashion was advising to the target under intermittent oblique and lateral views. When the needle gently contacted the bone the tip of the needle was deviated lateral advanced 2 mm and after that it was deviated medial and on the lateral vew it was advanced into the most inferior and lateral portion of the foramina. when the needle entered the projection of the foramina the patient started to c/o on severe parasthesia going all the way down to the leg and into the toes. The needle was withdrawn and position of the entrance point was changed for subpedicular approach. 3 mm below the lowest poin of the most prominent silhouette of the pedicle projection to the skin the local anesthetic was injected forming a skin wheal. 22g 5 inch needle was inserted through the skin wheal and advanced toward right L5-S1 foramina in subpedicular approach under intermittent lateral and oblique view. when the needle on lateral veiw was getting closer to the foramina the patient again expressed a sensation of paresthesia going all the way down to her right lower extremity. the needle was withdrawn and redirected to more posterior portion of the foramina by changing the angle of the needle approach to about 40 degree from the perperdicular to the skin . This time the patient experienced discomfort but reported it only in the back and not in the lower extremity. Contrast was injected and epidural and periarticular spread of the contrast was noted. Lidocaine 1% 3 mls was injected into the needle and the needle was withdrawn and sterile bandaid was applied. The patient tolerated procedure well, she walked from the operating room by herself with no difficulty. Orders: Orders FL guidance in treatment room Today M54.16 - Radiculopathy, lumbar region Coding Level of Care Code Procedure Only Diagnoses Lumbar spondylosis M47.816 Sacroiliitis M46.1 Lumbar radiculopathy M54.16 Vertebrogenic low back pain M54.51 Pain of both sacroiliac joints M53.3
[2023-04-08 08:12] VITALS: BP 130/70; PULSE 88; RESP 18; O2SAT 95; BMI 19.9
== END 2023-04-08 08:08 | disposition home or self-care (01) ==
PROVIDERS: PCP Internal Medicine; Visit Provider Anesthesiology
DX: M54.16 Radiculopathy, lumbar region (principal); M47.816 Spondylosis without myelopathy or radiculopathy, lumbar region; M46.1 Sacroiliitis, not elsewhere classified; M54.51 Vertebrogenic low back pain; M53.3 Sacrococcygeal disorders, not elsewhere classified
CPT/HCPCS: 64483

== ENCOUNTER 2023-09-10 09:47 | Outpatient (AMB) | payer BC, SELFPAY ==
--- NOTE | 2023-09-10 10:15 | MHC.OFFVIS ---
Intake Visit Reasons: Newprob-bursitis B/L hip/pain Intake Note: Oanh is a 72 year old female who presents today for a new problem with complaints of bilateral hip pain. Patient reports ongoing pain for a couple months. She states that her left hip is worse than the right hip. Her pain is more focused near the groin area. Pain is worse after swimming and physical therapy. 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 Hx of micro disectomy 4 months post op. Allergies No Known Allergies Allergy (Verified 09/10/23 10:27) Medication List - Last Reconciled 09/10/23 by Elissa Mays MD albuterol sulfate 90 mcg/actuation 1 puff inhalation QID alprazolam 0.5 mg PO DAILY celecoxib (Celebrex) 100 mg PO BID 30 days cetirizine (Zyrtec) 10 mg PO DAILY PRN cyclobenzaprine 5 mg PO BID escitalopram oxalate (Lexapro) 10 mg PO DAILY escitalopram oxalate 5 mg PO DAILY fluticasone propionate 50 mcg/actuation 1 spray intranasal DAILY gabapentin 600 mg PO DAILY trazodone 100 mg PO BEDTIME PRN HPI Comments Details: Since last time I saw her on 12/19/2022, patient has followed with pain management and neurosurgery ([facility]). Procedures: 05/06/2023 microdiskectomy right L5-S1 by Dr. Garcia. 04/08/2023 right TFE L5-S1. 03/05/2024 L4-5 TFE. 02/19/2024 and 01/07/2023 bilateral SI joint injections. MRI done late last year showed severe foraminal stenosis L5-S1. Injections did not help much therefore eventually needed microdiskectomy. However, postoperatively, patient had severe right foot/leg pain. She was referred back by Dr. Garcia to physical therapy. MRI repeated last May which reported release of the nerve. Continues to have the same pain in right back and leg unfortunately. Here today for left sided bursitis pain , left worse than right. She points to left lateral hip and right piriformis/glutues. Feels that some of the movements she's doing in PT and after surgery has started it. She feels that these areas are different from the right leg nerve pain and ongoing back pain. Left hip goes to the groin. Not all the time, but could be sharp, randomly then goes away fast. It has only happened 6 times on left side. 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 Patient was appropriately conversant and oriented. Good historian. MSK: No specific abnormalities found on inspection of the spine and all extremities. Focal tenderness over left greater trochanter. Right SI and piriformis continues to be tender. Lumbar ROM was full. Strength is 5/5 in all muscle groups tested. No increased tone noted. Neurological: Neurologic examination of the upper and lower extremities was nonfocal with intact sensation, muscle stretch reflexes and without focal motor deficits . Buck?s negative bilaterally. Babinski was down going bilaterally. Clonus was negative. Gait is antalgic without loss of balance. Office Procedures Joint Injection/Drain Joint Injection/Drain Details: Consent obtained. Patient lies on unaffected right side with lower leg flexed and upper leg extended. Tender area over the left greater trochanter is identified and marked. Area is cleansed with betadine solution. Using a 27 gauge needle, 3 ml of 2% lidocaine is injected, with the needle perpendicular to center of tender area. Then, using a 22 gauge spinal needle, 40 mg Kenalog is injected perpendicularly at center of tender area and slightly touching bone of greater trochanter. Patient tolerated procedure well without complications. Post-injection instructions given. Injected: 40 mg of, Kenalog and with 3 mL of (2% lidocaine) Procedure: The patient tolerated the procedure well Coding 32967 - Large joint Procedure code (CPT) selection complete Results Reviewed Results Reviewed: Ordering Physician: Ron Spears MD Date of Service: 01/28/23 Procedure(s): MR lumbar spine wo con Accession Number(s): [id number] cc: Heena Santos MD; Ron Spears MD~ EXAMINATION: MR LUMBAR SPINE WITHOUT CONTRAST CLINICAL INFORMATION: Vertebrogenic low back pain, evaluate for Modic changes COMPARISON: Lumbar radiograph 12/19/2022 TECHNIQUE: MRI of the lumbar spine was obtained using routine sequences without the administration of intravenous contrast. FINDINGS: This examination assumes the presence of 5 lumbar type vertebral bodies. For the purposes of this examination, the L5-S1 intervertebral disc space is visualized on axial series 6 image 23. The normal lumbar lordosis is preserved. Dextrocurvature of the mid/upper lumbar spine with trace levocurvature of the lower lumbar spine. There is grade 1 anterolisthesis of L3-L4 and L4-L5. Lumbar vertebral body heights are maintained. There are Modic type I endplate changes along the right aspect of L5-S1 additional Modic type I/II endplate changes at L2-L3 and L1-L2. The conus medullaris and cauda equina nerve roots are unremarkable; the conus terminates at the level of L1. Degenerative changes at T9-T10 evaluated on this examination. T12-L1: Left subarticular disc protrusion indents the ventral aspect of the thecal sac without significant spinal canal stenosis. The neural foramen. L1-L2: Disc bulge and osteophytic ridging with left greater than right facet arthropathy. The spinal canal is not significantly narrowed. There is moderate left greater than right neural foraminal stenosis. L2-L3: Disc bulge with left foraminal/far lateral disc protrusion. Facet arthropathy with ligamentum flavum redundancy and prominent epidural fat. The spinal canal is not significantly narrowed. The right neural foramen is patent. There is mild to moderate left neural foraminal stenosis. L3-L4: Advanced facet arthropathy with ligamentum flavum redundancy and prominent epidural fat. Grade 1 anterolisthesis with uncovering of the intervertebral disc. Disc bulge with subarticular/proximal foraminal disc protrusions. Narrowing of the lateral recesses and mild spinal canal stenosis. Moderate left neural foraminal stenosis. The right neural foramen is patent. L4-L5: Disc bulge with left foraminal disc protrusion and annular fissure. Advanced facet arthropathy with ligamentum flavum redundancy. Narrowing of the left greater than right lateral recess. Mild right neural foraminal stenosis. Moderate left neural foraminal stenosis. L5-S1: Disc bulge with right foraminal/far lateral disc protrusion. Right greater than left facet arthropathy with ligamentum flavum redundancy. Mild narrowing of the right lateral recess. The spinal canal is otherwise patent. Severe right neural foraminal stenosis with compression of the exiting right L5 nerve root. The left neural foramen is patent Subcentimeter T2 hyperintense lesion in the paranasal sinuses. MR/MR lumbar spine wo con IMPRESSION: Sigmoid curvature of the lumbar spine with asymmetric multilevel degenerative changes as described above. Right-sided endplate edema at L5-S1 is likely on the basis of scoliotic deformity. Multilevel degenerative changes as described above, most prominent at L5-S1 where there is severe right neural foraminal stenosis with compression of the exiting right L5 nerve root. Hip x-rays done in the office today, reviewed images with patient, showed joint space narrowing bilateral. Most likely degenerative changes. Await final reading. Assessment & Plan Assessment & Plan (1) Trochanteric bursitis of left hip: Code(s): M70.62 - Trochanteric bursitis, left hip Category: Medical (2) Right lumbar radiculopathy: Code(s): M54.16 - Radiculopathy, lumbar region Category: Medical Plan Although she has ongoing right L5-S1 lumbar symptoms despite recent surgery, and bilateral hip degenerative changes seen on x-ray, her main issue today that she wants to be addressed is the left lateral hip pain. Believe this is left greater trochanter bursitis. She would like to try injection today. Tolerated procedure well. Post-injection instructions given. Assessment and plan discussed with patient, and patient was agreeable. All questions were answered thoroughly. Elissa Mays MD, GUS Board Certified, [place] Board of Physical Medicine and Rehabilitation (ABPMR) Board Certified, [place] Board of Electrodiagnostic Medicine (ABEM) Orders: Orders XR hips JAMMIE min 3V Today M25.559 - Pain in unspecified hip AMB Joint Injection/Aspiration Today M70.62 - Trochanteric bursitis, left hip Coding Level of Care Code Est Pt Level 4 (56391) Diagnoses Trochanteric bursitis of left hip M70.62 Right lumbar radiculopathy M54.16 CPT Codes Coding - Large joint: - Large joint ([id number])
== END 2023-09-10 11:05 | disposition home or self-care (01) ==
PROVIDERS: PCP Internal Medicine; Visit Provider Physical Medicine & Rehabilitation
DX: M70.62 Trochanteric bursitis, left hip (principal); M54.16 Radiculopathy, lumbar region
CPT/HCPCS: 20610; 99214

== ENCOUNTER 2023-09-10 10:19 | Outpatient (REF) | payer MEDICARE, SELFPAY ==
--- NOTE | ~2023-09-10 | XR_ITS ---
EXAMINATION: XR BILATERAL HIPS WITH AP PELVIS CLINICAL INFORMATION: Nonspecified hip pain. COMPARISON: MR lumbar spine 01/28/2023, x-ray lumbar spine 12/19/2022. TECHNIQUE: AP view of the pelvis and 2 views of each hip FINDINGS: Diffuse demineralization. Degenerative changes in the imaged lower lumbar spine. Alignment of the bilateral hip joints are maintained. Moderate degenerative changes with joint space narrowing and hypertrophic change in the bilateral hips. Corticated ossicles along the lateral aspects of the bilateral hip joints. Degenerative changes in the left sacroiliac joint, greater than right. XR/XR hips JAMMIE min 3V IMPRESSION: 1. Moderate degenerative changes in the bilateral hips. 2. Degenerative changes in the imaged lower lumbar spine. 3. Degenerative changes in the left sacroiliac joint greater than right.
== END 2023-09-10 10:20 | disposition home or self-care (01) ==
LOC: HO.HOSX 10:19
PROVIDERS: Visit Provider Physical Medicine & Rehabilitation
DX: M70.62 Trochanteric bursitis, left hip (principal); M54.16 Radiculopathy, lumbar region
CPT/HCPCS: 20610; 73522; J3301

== ENCOUNTER 2023-12-24 10:03 | Outpatient (AMB) | payer BC, SELFPAY ==
--- NOTE | 2023-12-24 10:11 | A.OFFVIS_ITS ---
Intake Visit Reasons: OV-bursitis B/L hip/pain Intake Note: Oanh is a 72 year old female who presents today for a new problem with complaints of bilateral hip pain. Patient reports she is still having pain in her hip. She hasn't gotten any relief. Allergies No Known Allergies Allergy (Verified 12/24/23 10:16) HPI Comments Details: Since last time I saw her on 12/19/2022, patient [facility] Procedures: 05/06/2023 microdiskectomy right L5-S1 by Dr. Garcia. 04/08/2023 right TFE L5-S1. 03/05/2024 L4-5 TFE. 02/19/2024 and 01/07/2023 bilateral SI joint injections. MRI done late last year showed severe foraminal stenosis L5-S1. Injections did not help much therefore eventually needed microdiskectomy. However, postoperatively, patient had severe right foot/leg pain. She was referred back by Dr. Garcia to physical therapy. MRI repeated last May which reported release of the nerve. Continues to have the same pain in right back and leg unfortunately. Here today for left sided bursitis pain , left worse than right. She points to left lateral hip and right piriformis/glutues. Feels that some of the movements she's doing in PT and after surgery has started it. She feels that these areas are different from the right leg nerve pain and ongoing back pain. Left hip goes to the groin. Not all the time, but could be sharp, randomly then goes away fast. It has only happened 6 times on left side. Today she points to right SI/piriformis region. It goes down to right leg. Only occasional groin pain. Xrays did show moderate DJD. We did left trochanteric bursitis injection right side, last visit, which helped/resolved the lateral hip pain. 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 Patient was appropriately conversant and oriented. Good historian. MSK: Focal tenderness right piriformis. Also tender right SI joint. GT nontender. Lumbar ROM was full. Strength is 5/5 in all muscle groups tested. No increased tone noted. Neurological: Neurologic examination of the upper and lower extremities was nonfocal with intact sensation, muscle stretch reflexes and without focal motor deficits . Gait is antalgic without loss of balance. Office Procedures Therapeutic Injection Therapeutic Injection Details: Consent obtained. Patient lies prone. Focal tenderness, approximately middle third along line from sacrum to greater trochangter palpated and identified, right. Area is cleansed with betadine solution. Using a 27 gauge needle., 2 1/2 inch needle, 20mg Kenalog with 2 ml of 2% lidocaine is injected. Patient tolerated procedure well without complications. Post-injection instructions given. 26228-Ncrdpus Point Injection 1 or 2 sites All charges added?: Additional procedure code (CPT) needed (Please double check that this is the correct code for piriformis injection) Office Meds triamcinolone acetonide 40 mg/mL suspension for injection Performing Provider: Elissa Mays MD Performing Location: [facility] Documented (not given) by: Elissa Mays MD on 12/24/23 10:58 Dose Route Admin Location Dispensed Lot Number Expiration Date NDC Operations Inspector 20 mg IM mL Results Reviewed Results Reviewed: Ordering Physician: Elissa Herron Date of Service: 09/10/23 Procedure(s): XR hips JAMMIE min 3V Accession Number(s): [id number] cc: Elissa Herron~ EXAMINATION: XR BILATERAL HIPS WITH AP PELVIS CLINICAL INFORMATION: Nonspecified hip pain. COMPARISON: MR lumbar spine 01/28/2023, x-ray lumbar spine 12/19/2022. TECHNIQUE: AP view of the pelvis and 2 views of each hip FINDINGS: Diffuse demineralization. Degenerative changes in the imaged lower lumbar spine. Alignment of the bilateral hip joints are maintained. Moderate degenerative changes with joint space narrowing and hypertrophic change in the bilateral hips. Corticated ossicles along the lateral aspects of the bilateral hip joints. Degenerative changes in the left sacroiliac joint, greater than right. XR/XR hips JAMMIE min 3V IMPRESSION: 1. Moderate degenerative changes in the bilateral hips. 2. Degenerative changes in the imaged lower lumbar spine. 3. Degenerative changes in the left sacroiliac joint greater than right. Assessment & Plan Assessment & Plan (1) Piriformis syndrome of right side: Code(s): G57.01 - Lesion of sciatic nerve, right lower limb Category: Medical (2) Sacroiliac joint dysfunction of right side: Code(s): M53.3 - Sacrococcygeal disorders, not elsewhere classified Category: Medical (3) Right lumbar radiculopathy: Code(s): M54.16 - Radiculopathy, lumbar region Category: Medical Plan Patient understands that there are overlaps between L5-S1 radiculopathy, SI joint and piriformis pain. But perhaps we could take care of the secondary focal pain issues such as the piriformis and help her overall. She would like to proceed with right piriformis injection today. Left GT is improved after injection last visit. Patient tolerated procedure well. She is leaving for vacation in January. Patient may call if any issues prior to her vacation. Assessment and plan discussed with patient, and patient was agreeable. All questions were answered thoroughly. Elissa Mays MD, GUS Board Certified, [place] Board of Physical Medicine and Rehabilitation (ABPMR) Board Certified, [place] Board of Electrodiagnostic Medicine (ABEM) Orders: Orders AMB Trigger Point Injection Today G57.01 - Lesion of sciatic nerve, right lower limb Medications: New triamcinolone acetonide 20 mg (0.5 mL) IM ONCE 0.5 mL 0RF G57.01 - Lesion of sciatic nerve, right lower limb Coding Level of Care Code Est Pt Level 3 (08427) Diagnoses Piriformis syndrome of right side G57.01 Sacroiliac joint dysfunction of right side M53.3 Right lumbar radiculopathy M54.16 CPT Codes Therapeutic Injection - Ther Injection 1: 55360-Twadsdb Point Injection 1 or 2 sites ([id number])
== END 2023-12-24 10:38 | disposition home or self-care (01) ==
PROVIDERS: PCP Internal Medicine; Visit Provider Physical Medicine & Rehabilitation
DX: M76.01 Gluteal tendinitis, right hip (principal); M53.3 Sacrococcygeal disorders, not elsewhere classified; G57.01 Lesion of sciatic nerve, right lower limb; M54.9 Dorsalgia, unspecified
CPT/HCPCS: 20552; 99214

== ENCOUNTER → 2023-12-24 10:03 | Outpatient (BNVA) | payer BC, SELFPAY | PROVIDERS: PCP Internal Medicine; Visit Provider Physical Medicine & Rehabilitation | DX: G57.01 Lesion of sciatic nerve, right lower limb (principal); M53.3 Sacrococcygeal disorders, not elsewhere classified; M54.16 Radiculopathy, lumbar region | CPT/HCPCS: 20552; J2003; J3301 ==

== ENCOUNTER 2024-05-20 10:04 | Outpatient (AMB) | payer BC, SELFPAY ==
--- NOTE | 2024-05-20 10:09 | A.OFFVIS_ITS ---
Vital Signs 05/20/24 10:14 Height 5 ft 2 in Weight 110 lb BMI 20.1 Intake Visit Reasons: OV-bursitis B/L hip/pain Intake Note: Oanh 73 yr old female presents today for her follow up visit for her Piriformis syndrome of right side s/p trigger injection from 12/24/2023, states injection helped relieved some of her pain for a little while. Currently states she is having pain again on her right side/buttocks and would like to discuss another round of injections. Allergies No Known Allergies Allergy (Verified 05/20/24 10:15) Medication List - Last Reconciled 05/20/24 by Elissa Mays MD albuterol sulfate 90 mcg/actuation 1 puff inhalation QID alprazolam 0.5 mg PO DAILY celecoxib (Celebrex) 100 mg PO BID 30 days cetirizine (Zyrtec) 10 mg PO DAILY PRN cyclobenzaprine 5 mg PO BID escitalopram oxalate (Lexapro) 10 mg PO DAILY escitalopram oxalate 5 mg PO DAILY fluticasone propionate 50 mcg/actuation 1 spray intranasal DAILY gabapentin 600 mg PO DAILY trazodone 100 mg PO BEDTIME PRN HPI Comments Details: I've been following Oanh for piriformis pain, trochanter bursitis, SI joint pain and lumbar radiculopathy. Procedures: 05/06/2023 microdiskectomy right L5-S1 by Dr. Garcia. 04/08/2023 right TFE L5-S1 Dr. Spears pain management 03/05/2024 L4-[address] Spears pain management 02/19/2024 and 01/07/2023 bilateral SI joint injections Dr. Spears pain management Procedures by nv: TPI 12/19/22 left GT injection 09/10/23 right piriformis injection 12/24/23 MRI showed severe foraminal stenosis L5-S1. s/p microdiskectomy by Dr. Garcia. However, postoperatively, patient had severe right foot/leg pain. MRI repeated reported release of the nerve. Continues to have the same pain in right back and leg unfortunately. Last right piriformis injection helped her. On/off nerve pain on right foot has gotten worse, pain down right leg. It has been worse on right SI, buttocks and shooting to foot. Still in contact with Dr. Garcia's office, prescribed with gabapentin. 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 Patient was appropriately conversant and oriented. Good historian. MSK: Focal tenderness right greater trochanter and right piriformis Mildly tender right SI joint. Lumbar ROM was full. Fabere negative. Strength is 5/5 in all muscle groups tested. No increased tone noted. Neurological: Neurologic examination of the upper and lower extremities was nonfocal with intact sensation, muscle stretch reflexes and without focal motor deficits . Gait is antalgic without loss of balance. Office Procedures AMB Joint Injection/Aspiration Joint Injection/Aspiration Details: Consent obtained. Patient lies on left unaffected side with right lower leg flexed and upper leg extended. Tender area over the right greater trochanter is identified and marked. Area is cleansed with betadine solution. Using a 25 gauge needle, 3 ml of 2% lidocaine is injected, with the needle perpendicular to center of tender area. Then, using a spinal needle, 40 mg Kenalog is injected perpendicularly at center of tender area and slightly touching bone of greater trochanter. Patient tolerated procedure well without complications. Post-injection instruct ions given. Injected: 40 mg of, Kenalog and with 3 mL of (2% lidocaine) Procedure: The patient tolerated the procedure well Coding - Large joint Procedure code (CPT) selection complete Therapeutic Injection Therapeutic Injection Details: Trigger point injection, right piriformis: Consent obtained. Patient lies prone. Focal tenderness on right side, approximately middle third along line from sacrum to greater trochangter palpated and identified. Area is cleansed with betadine solution. Using a 27 gauge needle, 2 mL of 2% lidocaine is injected. Patient tolerated procedure well without complications. Post-injection instructions given. Patient tolerated procedure well. Post-injection instructions given. 98122-Zsnbtir Point Injection 1 or 2 sites All charges added?: Procedure code (CPT) selection complete Results Reviewed Results Reviewed: Ordering Physician: Elissa Herron Date of Service: 09/10/23 Procedure(s): XR hips JAMMIE min 3V Accession Number(s): [id number] cc: Elissa Herron~ EXAMINATION: XR BILATERAL HIPS WITH AP PELVIS CLINICAL INFORMATION: Nonspecified hip pain. COMPARISON: MR lumbar spine 01/28/2023, x-ray lumbar spine 12/19/2022. TECHNIQUE: AP view of the pelvis and 2 views of each hip FINDINGS: Diffuse demineralization. Degenerative changes in the imaged lower lumbar spine. Alignment of the bilateral hip joints are maintained. Moderate degenerative changes with joint space narrowing and hypertrophic change in the bilateral hips. Corticated ossicles along the lateral aspects of the bilateral hip joints. Degenerative changes in the left sacroiliac joint, greater than right. XR/XR hips JAMMIE min 3V IMPRESSION: 1. Moderate degenerative changes in the bilateral hips. 2. Degenerative changes in the imaged lower lumbar spine. 3. Degenerative changes in the left sacroiliac joint greater than right. Assessment & Plan Assessment & Plan (1) Right lumbar radiculopathy: Code(s): M54.16 - Radiculopathy, lumbar region Category: Medical (2) Trochanteric bursitis, right hip: Code(s): M70.61 - Trochanteric bursitis, right hip Category: Medical (3) Piriformis syndrome of right side: Code(s): G57.01 - Lesion of sciatic nerve, right lower limb Category: Medical Plan We agree that her symptoms are primarily from lumbar spine, despite failed surgery. Our hope is that we could take care of secondary sources of pain to bring her pain level to at least tolerable. Patient underwent right GT and TPI to piriformis injections today without complications. We can trial steroid injection to piriformis in 3-4 weeks. If she wants to reconsider lumbar spine injections, I can refer her to Dr. Dumont. Assessment and plan discussed with patient, and patient was agreeable. All questions were answered thoroughly. Elissa Mays MD, GUS Board Certified, [place] Board of Physical Medicine and Rehabilitation (ABPMR) Board Certified, [place] Board of Electrodiagnostic Medicine (ABEM) Orders: Orders AMB Joint Injection/Aspiration Today M70.61 - Trochanteric bursitis, right hip AMB Trigger Point Injection Today G57.01 - Lesion of sciatic nerve, right lower limb Coding Level of Care Code Est Pt Level 4 (24424) Diagnoses Right lumbar radiculopathy M54.16 Trochanteric bursitis, right hip M70.61 Piriformis syndrome of right side G57.01 CPT Codes Coding - 12744 Large joint: 39861 - Large joint ([id number]) Therapeutic Injection - Ther Injection 1: 33625-Ahuvjls Point Injection 1 or 2 sites ([id number])
[2024-05-20 10:14] VITALS: BMI 20.1
--- OUTSIDE RECORDS SUMMARY | 2024-05-20 11:45 | XMS_ITS | Encounter Summary ---
Author Organization [facility] Address [address] [place] [address] Care Team Providers Care Inseminator Name Role Phone Heena Santos MD Primary Care Prov ider Encounter Details Date Type Department Care Team ([facility] st Contact Info) Description 05/06/2024 Telephone Neurosurgery [facility] [address] [place] [address] [place] Social History Tobacco Use Types Packs/Day Years Used Date Smoking Tobacco: Former Cigarettes 0.3 20 0 1972 - 03/17/1992 Smokeless Tobacco: Never Alcohol Use Standard Drinks/Week Comments Yes 2 (1 standard drink = 0.6 oz pur e alcohol) Housing Instability Answer Date Recorde d Are you worried that in the next 2 months you may not have stable housing? No 03/15/2024 Food Access & Nutrition Answer Date Rec orded Do you have access to a vari ety of food including fruits and vegetables? Yes 03/15/2024 Access to Healthcare Answer Date Record ed Within the last 3 months, ho w many times did you visit the emergency department for your medical care? 0 03/15/2024 Health Literacy Answer Date Recorded How often do you need to hav e someone help you when you read instructions, pamphlets, or other written material from your doctor or pharmacy? Never 03/15/2024 Caregiver: How often do you need to have someone help you when you read instructions, pamphlets, or other written material from your doctor or pharmacy? Not on file 03/15/2024 Financial Risk Answer Date Recorded How hard is it for you to pa y for the very basics like food, housing, medical care, and air conditioning / heating? Not very hard 03/15/2024 Transportation Answer Date Recorded Has the lack of transportati on kept you from meetings, work, or from getting things needed for daily living? No Has the lack of transportati on kept you from medical appointments or from getting medications? No 03/15/2024 Social Isolation Answer Date Recorded How often do you feel lonely or isolated from th ose around you? Never 03/15/2024 Food Risk Answer Date Recorded Within the past 12 months we worried whether our food would run out before we got money to buy more. Never true 03/15/2024 Within the past 12 months th e food we bought just didn't last and we didn't have money to get more. Never true 03/15/2024 Dependent Care Answer Date Recorded Do you need help finding or paying for care for your loved ones. For example, early childhood aide classroom or elderly care for an older adult? No 03/15/2024 Education Answer Date Recorded Do you think completing more education or training, like finishing a GED, going to college, or learning a trade, would be helpful for you? No 03/15/2024 Employment and Income Answer Date Recor ded During the last four weeks, have you been actively looking for work? No 03/15/2024 Living Situation Answer Date Recorded What is your living situation? 1 Comments No Sex and Gender Information Value Date Recorded Sex Assigned at Not on file Legal Sex Female 6:14 PM EST Gender Identity Not on file Sexual Orientation Not on file documented as of this encounter Ordered Prescriptions Prescription Sig Dispense Quantity Refills Last Filled Start Date End Date gabapentin (NEURONTIN) 600 mg tabletIndications:L umbar radiculopathy Take 1 tablet (600 mg total) by mouth at bedtime. 30 each 2 05/07/2024 5 gabapentin (NEURONTIN) 600 mg tabletIndications:L umbar radiculopathy Take 1 tablet (600 mg total) by mouth at bedtime. 30 each 2 05/06/2024 5 documented in this encounter Progress Notes * ROSE Martni - 05/07/2024 12:05 PM ESTAddended by: LENIN SOLIS on: 05/07/2024 12:05 PM Modules accepted: Orders * Joanie Sal MA - 05/06/2024 3:38 PM EST Patient would like refill of 600mg [facility] [address] [facility] documented in this encounter Plan of Treatment Upcoming Encounters Date Type Department Care Team (Late st Contact Info) Description 06/02/2024 10:15 AM EDT Consult Endocrinology - [address] [address] Kandis Flynn PA [address] [place] [address] documented as of this encounter Visit Diagnoses Diagnosis Lumbar radiculopathy- Primary Thoracic or lumbosacral neuritis or radiculitis, unspecified documented in this encounter Discontinued Medications Medication Sig Discontinue Reason Start Date End Da te gabapentin (NEURONTIN) 600 mg tablet 1 tab PO at bedtime Reorder 11/11/2023 05/06/2024 gabapentin (NEURONTIN) 600 mg tabletIndications:Lumbar radiculopathy Take 1 tablet (600 mg total) by mouth at bedtime. Reorder 05/06/2024 05/07/2024 documented as of this encounter Additional Health Concerns Assessment Noted Time PHQ-9 Depression Total Score: 0 03/08/20 24 2:59 PM EST documented as of this encounter Care Teams Inseminator Relationship Specialty Start Date End Date Heena Santos MD [address] [place] [id number] PCP - General Internal Medicine 05/18/13 documented as of this encounter
--- OUTSIDE RECORDS SUMMARY | 2024-05-20 11:45 | XMS_ITS | Data Portability ---
Author Organization [place] [facility],, CONSTANCE DEL CASTILLO MD Address [address] [facility] [address] [place] [address] Care Team Providers Care Corrections Nurse Name Role Phone JEANIEWOLFGANGQUINTEN Primary Care Provide r Assessment No assessment recorded. Plan of Treatment Reminders Order Date Submit Date Provider Last Modified By Organization Details Last Modified Time Details Appointments ANNUAL EXAM 2024 10:00A M Constance Del Castillo MD Not available Not available Not available Lab wet mount, vaginal 2024 025 [email or web address] 1 In-Office Order, Internal Use Only DO Not Attach Compendium DO Not Attach Compendium, Do Not Delete/merge, [id number] 03/24/2024 10:55:17 pap test, thinprep , cervical 2022 023 [email or web address] [facility] (Centralized Electronic Ordering - All Locations), Patient Can Go To The Location Of Their Choice, [id number] 06/10/2022 08:08:23 pap test, thinprep , cervical 2020 021 [email or web address] [facility], Cytopathology Service, [address] [place] [address], [address], 06/01/2020 07:48:58 pap test, thinprep , cervical 2017 018 VASU [facility], Cytopathology Service, [address] [place], [address], 10/13/2017 16:48:20 fecal occult blood, stool 2017 018 [email or web address] In-Office Order, Internal Use Only DO Not Attach Compendium DO Not Attach Compendium, Do Not Delete/merge, [id number] 10/17/2017 07:46:14 urinalys is, dipstick 2016 017 [email or web address] 1 In-Office Order, Internal Use Only DO Not Attach Compendium DO Not Attach Compendium, Do Not Delete/merge, [id number] 09/13/2016 11:14:15 pap test, thinprep , cervical 2016 017 [facility], Cytopathology Service, [address] [place], [address], 09/19/2016 14:05:58 fecal occult blood, stool 2016 017 [email or web address] 1 In-Office Order, Internal Use Only DO Not Attach Compendium DO Not Attach Compendium, Do Not Delete/merge, [id number] 09/13/2016 11:14:15 Referral None recorded . Procedures None recorded . Surgeries None recorded . Imaging US, breast, unilater al, complete - left breast pain for 3 months at the base of breast from the 4 to the 7 o'clock, linearly 2024 025 [facility] (Mammography), [address] [place], [address], 04/13/2024 13:26:34 MAMMO, diagnost ic, digital, unilater al - left breast pain for 3 months at the base of breast from the 4 to the 7 o'clock, linearly 2024 025 [facility] (Mammography), [address] [place], [address], 04/13/2024 13:26:03 MAMMO, screenin g, digital, bilatera l - Breast Aspirati on and/or Biopsy if needed 2022 023 [facility] (Mammography), [address] [place], [address], 2022 09:21:34 bone density 2022 023 [facility] (Mammography), [address] [place], [address], 11/24/2023 07:25:00 MAMMO, screenin g, digital, bilatera l 2020 021 [facility] (Mammography), [address] [place], [address], 05/16/2022 07:34:51 bone density 2020 021 [email or web address] [facility] Orders, [address], [address], [place], [address], 05/20/2022 08:15:24 bone density 2017 018 [facility] (Mammography), [address] [place], [address], 11/13/2017 10:45:47 MAMMO, screenin g, digital, bilatera l 2017 018 [facility] Imaging Orders, [address], [address], [place], [address], 05/24/2018 00:24:23 MAMMO, screenin g, digital, bilatera l 2016 017 [facility] Imaging Orders, [address], [address], [place], [address], 05/14/2017 16:05:12 Medication Orders fluconaz ole 150 mg tablet 2024 025 [facility] #1972, [address] [place], [address], 03/24/2024 10:55:01 triamcin olone acetonid e 0.1 % topical ointment 2024 025 [facility] #1972, [address] [place], [address], 03/24/2024 10:55:00 Patient TargetsNo targets recorded. Patient Instructions Encounter Date Encounter Id Patient Instructions Last Modified By Organization Details Last Modified Time 09/13/2016 [id number] painful urinatio n (dysuria): care instructions phillip Not available 09/13/2016 12:55:26 She is here for annual exam, is doing well. She wonders if she has a UTI because she has on and off dysuria. She is taking post coital Keflex, from Dr. Ospina. Urine dip today is negative. She is caring for her developmentally delayerd sister, who is now living with her and her . She appears to be doing well. She is advised to get 1500 mg of calcium daily into her diet and supplements combined. We discussed the benefits of adequate vitamin D supplementation to at least 400 units daily, daily aerobic exercise of 30 minutes, and stress reduction. Monthly self breast exam was taught, and stressed, and is advised to call if she discovers any new mass in the breast. Seat belt use for herself and passengers advised. The significant health benefits of becoming and remainig fit, with an optimal BMI, were also discussed. We discussed the potential reduction in chronic discomfort, the diminished risks of hypertension, diabetes, and heart disease with the proper weight management, and improved mobility as she ages. Strategies to reach and maintain her target weight wer discussed in detail, all questions answered. Not available 09/13/2016 11:14:31 10/10/2017 [id number] osteoporosis: ca re instructions Not available 10/10/2017 13:51:07 She is here for annual exam, is doing well. She has osteoporosis, had a T score of -3.3 in 2014, has not had a bone density test since then. She used Boniva for a year but stopped secondary to stomach pain, she has not had any since then. She is 5 ft 2, 108 pounds, has a thin frame. She will repeat bone density now. IF she still has osteoporosis we will rx Prolia as she has failed Boniva and could not tolerate oral medication. She appears to be doing well. She is advised to get 1500 mg of calcium daily into her diet and supplements combined. We discussed the benefits of adequate vitamin D supplementation to at least 400 units daily, daily aerobic exercise of 30 minutes, and stress reduction. Monthly self breast exam was taught, and stressed, and is advised to call if she discovers any new mass in the breast. Seat belt use for herself and passengers advised. The significant health benefits of becoming and remainig fit, with an optimal BMI, were also discussed. We discussed the potential reduction in chronic discomfort, the diminished risks of hypertension, diabetes, and heart disease with the proper weight management, and improved mobility as she ages. Strategies to reach and maintain her target weight wer discussed in detail, all questions answered. Not available 10/10/2017 14:07:42 05/25/2020 [id number] things to do i f you've been exposed to covid-19 Not available 05/25/2020 10:33:41 atrophic vaginit is: care instructions Not available 05/25/2020 10:31:24 learning about healthy weight Not available 05/25/2020 10:31:24 She is here for annual exam, is legally blind. she has osteoporosis, saw an social organization professor nad did Reclast last year, she notes that her PCP ordered a bone density recently, It was no sales and service change leader my prior one we do not have that result. In 2018 the bone density was : T scores in 2018 were -2.7, -3.0, -3.1 and -3.2. note rom 09/2017: She is here for annual exam, is doing well. She has osteoporosis, had a T score of -3.3 in 2015, has not had a bone density test since then. She used Boniva for a year but stopped secondary to stomach pain, she has not had any since then. She is 5 ft 2, 108 pounds, has a thin frame. She will repeat bone density now. IF she still has osteoporosis we will rx Prolia as she has failed Boniva and could not tolerate oral medication. She appears to be doing well. She will ask her PCP to send us a copy of her bone density, and she agrees to call her social organization professor to talk about continued medical therapy for her osteoporosis. She agrees that she let this slide as she was caring for others during the pandemic. Her and her daughter had covid last year, she did not. She is advised to get 1500 mg of calcium daily into her diet and supplements combined. We discussed the benefits of adequate vitamin D supplementation to at least 400 units daily, daily aerobic exercise of 30 minutes, and stress reduction. Monthly self breast exam was taught, and stressed, and is advised to call if she discovers any new mass in the breast. Not available 05/25/2020 10:33:00 05/27/2022 [id number] atrophic vaginit is: care instructions [place] Not available 05/27/2022 10:05:12 learning about healthy weight Not available 05/27/2022 10:05:12 She is here for annual exam, is legally blind. she has osteoporosis, is managed by her PCP. She has had rare., fleeting, sharp pains suprpaubically over the past year, very transient and mild to moderate. Note from 11/2020: She is here for annual exam, is legally blind. she has osteoporosis, saw an social organization professor nad did Reclast last year, she notes that her PCP ordered a bone density recently, It was no sales and service change leader my prior one we do not have that result. In 2018 the bone density was : T scores in 2018 were -2.7, -3.0, -3.1 and -3.2. She declines pelvic sonogram at this time, is advised if the pain becomes more worrisome then please call to set up sonogram, or if she has any spotting. She appears to be doing well. Monthly self breast exam was taught, and stressed, and is advised to call if she discovers any new mass in the breast. Not available 05/27/2022 10:05:09 03/24/2024 [id number] vaginal yeast infection: care instructions [place] Not available 03/24/2024 10:54:58 She is here for a 3 month history of complaint of a pain in her left breast base, and also a 3 week hsitory of vaginal external discomfort zings occasionally, when she washes herself on the vulva. Last mammogram 12/08 by her kathleen, and showed dense breasts we do not have a copy of that. Note from 06/06: She is here for annual exam, is legally blind. she has osteoporosis, is managed by her PCP. She has had rare., fleeting, sharp pains suprpaubically over the past year, very transient and mild to moderate. She has symptomatic vaginal yeast, recently took antibiotics. Rx diflucan, call if symptoms persist. She also has early lichen sclerosis, rx Aristocort. No mass palpated in left breast. The pain is along her bra line, and she is advised it may be due to that, but she is adamant that it is not. Will check sonogram and mammogram of the area for further information. She will get me a copy of her recent mammogram. Not available 03/24/2024 10:58:19 Reason for Referral None Reported. Results Created Date Observation Date Name Description Value Unit Range Abnormal Flag Note LastModifiedBy Organization Detail LastModifiedTime 10/11/19 18 10/10/2017 fecal occul t blood , stool Occult Blood negati ve Not Available In-Office Order Internal Use Only DO Not Attach Compendium DO Not Attach Compendium, Do Not Delete/merge, [id number] 10/10/2017 13:33:41 09/14/1909/13/2016 urina lysis , dipst ick GLU Negati ve Not Available In-Office Order Internal Use Only DO Not Attach Compendium DO Not Attach Compendium, Do Not Delete/merge, 09/13/2016 10:14:37 09/14/19 17 09/13/2016 urina lysis , dipst ick JAMMIE Negati ve Not Available In-Office Order Internal Use Only DO Not Attach Compendium DO Not Attach Compendium, Do Not Delete/merge, [id number] 09/13/2016 10:14:37 09/14/1909/13/2016 urina lysis , dipst ick KET Negati ve Not Available In-Office Order Internal Use Only DO Not Attach Compendium DO Not Attach Compendium, Do Not Delete/merge, 09/13/2016 10:14:37 09/14/19 17 09/13/2016 urina lysis , dipst ick SG 1.015 Not Available In-Office Order Internal Use Only DO Not Attach Compendium DO Not Attach Compendium, Do Not Delete/merge, 09/13/2016 10:14:37 09/14/19 17 09/13/2016 urina lysis , dipst ick BLO Negati ve Not Available In-Office Order Internal Use Only DO Not Attach Compendium DO Not Attach Compendium, Do Not Delete/merge, 09/13/2016 10:14:37 09/14/19 17 09/13/2016 urina lysis , dipst ick pH 5.0 Not Available In-Office Order Internal Use Only DO Not Attach Compendium DO Not Attach Compendium, Do Not Delete/merge, 09/13/2016 10:14:37 09/14/19 17 09/13/2016 urina lysis , dipst ick PRO Negati ve Not Available In-Office Order Internal Use Only DO Not Attach Compendium DO Not Attach Compendium, Do Not Delete/merge, 09/13/2016 10:14:37 09/14/19 17 09/13/2016 urina lysis , dipst ick URO 0.2 E.U. / dl Not Available In-Office Order Internal Use Only DO Not Attach Compendium DO Not Attach Compendium, Do Not Delete/merge, 09/13/2016 10:14:37 09/14/19 17 09/13/2016 urina lysis , dipst ick NIT negati ve Not Available In-Office Order Internal Use Only DO Not Attach Compendium DO Not Attach Compendium, Do Not Delete/merge, 09/13/2016 10:14:37 09/14/19 17 09/13/2016 urina lysis , dipst ick XIN Negati ve Not Available In-Office Order Internal Use Only DO Not Attach Compendium DO Not Attach Compendium, Do Not Delete/merge, 09/13/2016 10:14:37 09/14/1909/13/2016 fecal occul t blood , stool Occult Blood negati ve Not Available In-Office Order Internal Use Only DO Not Attach Compendium DO Not Attach Compendium, Do Not Delete/merge, [id number] 09/13/2016 10:08:04 09/14/19 17 09/13/2016 pap, LB [id number] ThinP rep Pap, Image d: NEGAT ESTELA FOR SQUAM OUS INTRA EPITH ELIAL LESIO N AND MALIG NATE . Atrop hy. Estefanía Lawson, CT( CP) (Case elect joceline angeles bhavik d 09 19 2016) ADEQU ACY: Satis facto ry. SOURC E: ThinP rep Pap HPV IF Ascus : Refle x 16 and 18, Cervi guy, Image d: CLINI GUY INFOR MATIO N: HPV IF NEGAT ESTELA OR ASCUS LAST PAP 6 MENOP AUSE, Z12.4 , V72.3 `, Z01.4 19 Not Available [facility], Cytopathology Service [address] [place], [address], 09/19/2016 14:05:58 10/11/19 18 10/10/2017 pap, LB [id number] ThinP rep Pap, Image d: NEGAT ESTELA FOR SQUAM OUS INTRA EPITH ELIAL LESIO N AND MALIG NATE . Toña Cantu , CT( CP) (Case elect joceline angeles bhavik d 10 13 2017) ADEQU ACY: Satis facto ry. Endoc ervic al/tr ansfo rmati on zone compo nent prese nt. SOURC E: ThinP rep Pap HPV IF ASCUS , Cervi guy, Image d: CLINI GUY INFOR MATIO N: HPV Any Diagn osis. z12.4 , z01.4 19 Not Available [facility], Cytopathology Service [address] [place], [address], 10/13/2017 16:48:19 05/26/19 21 05/25/2020 pap, LB [id number] ThinP rep Pap, Image d: NEGAT ESTELA FOR SQUAM OUS INTRA EPITH ELIAL LESIO N AND MALIG NATE . Atrop hy with infla mmati on is prese nt. Antoni Benavidez a , CT( CP) (Case elect joceline angeles bhavik d 05 29 2020) ADEQU ACY: Satis facto ry . SOURC E: ThinP rep Pap HPV IF ASCUS , Cervi guy, Image d CLINI GUY INFOR MATIO N: HPV If Diagn osis of ASCUS . lps neg, z12.4 Not Available [facility], Cytopathology Service [address] [place], [address], 05/29/2020 14:52:57 05/28/1905/27/2022 [facility] [place] CYTOL OGY results Patiedith nt Name: GEOVANNI DIAS nt : 953 (Age: 71) Lab Acces rosa #: [id number] Colle ction Date: 2022 Acces rosa Date: 2022 Sign Out Date: 2022 Tissu e Sourc e: 1: THINP REP HEAD OF HOUSEKEEPING PAP TEST, CERVI GUY: Final Diagn osis: NEGAT ESTELA FOR INTRA EPITH ELIAL LESIO N OR MALIG NATE . Satis facto ry for evalu ation . Endoc ervic al/tr ansfo rmati on zone prese nt. Clini guy Histo ry: Date of Last Menst rual Perio d: not avail able Menst rual Histo ry: Post- menop ausal Contr acept estela Histo ry: not avail able Ancil cristine Testi ng: HPV (ASCU S) Case image d by the ThinP rep Imagi ng Syste m with jaxon villatoro rescr alessandra corona or marvin stover Perfo rmed at [facility] ate Refer ence Labor atory depar tment of Cytol ogy, [address] [place] Clini guy Histo ry (othe r): Z12.4 LPS 05-25 NEGAT ESTELA ROUTI NE SCREE N Phone #: [phone], On-Ca ll Patho logis t: [id number] Not Available [facility] (Centralized Electronic Ordering - All Locations) Patient Can Go To The Location Of Their Choice, [id number] 06/06/2022 11:31:26 03/24/19 25 03/24/2024 wet mount , vagin al Clue Cells negati ve Not Available In-Office Order Internal Use Only DO Not Attach Compendium DO Not Attach Compendium, Do Not Delete/merge, [id number] 03/24/2024 10:54:04 03/24/19 25 03/24/2024 wet mount , vagin al Trichomonas negati ve Not Available In-Office Order Internal Use Only DO Not Attach Compendium DO Not Attach Compendium, Do Not Delete/merge, [id number] 03/24/2024 10:54:04 03/24/19 25 03/24/2024 wet mount , vagin al Hyphae positi ve Not Available In-Office Order Internal Use Only DO Not Attach Compendium DO Not Attach Compendium, Do Not Delete/merge, [id number] 03/24/2024 10:54:04 03/24/19 25 03/24/2024 wet mount , vagin al atrophic epithelium positi ve Not Available In-Office Order Internal Use Only DO Not Attach Compendium DO Not Attach Compendium, Do Not Delete/merge, [id number] 03/24/2024 10:54:04 05/14/19 18 05/14/2017 MAMMO , cristo olmedo, digit al, bilat eral No observ ation record ed. [facility] [address], [address], 05/15/2017 08:25:50 11/14/19 18 11/13/2017 bone densi ty No observ ation record ed. [email or web address] [facility] Diagn[facility] Imaging Dept [address] [place], [address], 03/20/2018 10:59:20 11/21/19 18 11/13/2017 bone densi ty No observ ation record ed. [facility] [address] [place], [address], 11/20/2017 13:35:39 05/24/19 19 05/23/2018 MAMMO , nae shara, digit al, bilat eral No observ ation record ed. [address] Diagnosit Imaging Dept [address] [place] [address], [address], 05/24/2018 16:17:09 05/26/1905/26/2019 MAMMO , scree shara, digit al, bilat eral No observ ation record ed. [address] Diagnosit Imaging Dept [address] [place] [address], [address], 05/26/2019 11:23:18 11/20/19 23 2022 MAMMO , scree shara, digit al, bilat eral No observ ation record ed. [address] Diagnosit Imaging Dept [address] [place] [address], [address], 2022 09:28:21 03/24/1912/06/2023 MAMMO , scree shara, digit al, bilat eral No observ ation record ed. [address] Diagnosit Imaging Dept [address] [place] [address], [address], 03/24/2024 10:59:11 03/24/1912/06/2023 MAMMO , scree shara, digit al, bilat eral No observ ation record ed. [address] Diagnosit Imaging Dept [address] [place] [address], [address], 03/24/2024 12:23:45 03/25/1912/06/2023 MAMMO , scree shara, digit al, bilat eral No observ ation record ed. [address] Diagnosit Imaging Dept [address] [place] [address], [address], 03/25/2024 12:06:22 04/13/19 25 04/13/2024 MAMMO , diagn ostic , digit al, unila teral No observ ation record ed. [email or web address] [facility] Diagnosit Imaging Dept [address] [place], [address], 04/14/2024 11:55:43 04/13/1904/13/2024 US, michelle pearce , edgar ete No observ ation record ed. [address] [facility], [place], [address], 04/14/2024 11:55:43 04/16/1904/13/2024 bone densi ty No observ ation record ed. [facility] In[facility] [address] [place] [address], [phone], 04/19/2024 09:31:54 Result Notes None recorded. Problems Name Problem SNOMED Code Status Onset Date Resolution Date Notes Provider Name and Address Organization Details Recorded Time Menopausal syndrome 084596742 Active Constance Del Castillo MD [address], [place], [address], [place] [facility], 6 13:40:05 Retinitis pigmentosa 61875468 Active legally blind, this is genetic Constance Del Castillo MD [address], [place], [address], [place] [facility], 6 13:40:05 Calculus of kidney and ureter 928880970 Active 2013 [facility] calcium Constance Del Castillo MD [address], [place], [address], [place] [facility], 6 13:40:05 Osteoporos is 87361061 Active failed oral therapy could not tolerate Boniva orally, would like to try Prolia Constance Del Castillo MD [address], [place], [address], [place] [facility], 8 14:07:19 Vitamin D deficiency 58075777 Active MD Jason Clarke,[address], [place], [address], [place] - [facility], 6 13:40:05 Family history of malignant neoplasm of breast in first degree relative 025387097 Active Constance Del Castillo MD [address], [place], [address], [place] [facility], 6 13:40:05 Fracture of distal end of radius and ulna 485065442 Active Constance Del Castillo MD [address], [place], [address], [place] [facility], 6 13:40:05 Fracture of humerus 51930710 Active Constance Del Castillo MD [address], [place], [address], [place] [facility], 6 13:40:05 Recurrent urinary tract infection 414966901 Active 2016 is taking keflex post coitally, from Dr. Bhavesh Del Castillo MD [address], [place], [address], [place] [facility], 7 10:12:28 Exposure to SARS-CoV-2 Active 2020 Her and her daughter had covid in 06/2019, she did not. Constance Del Castillo MD [address], [place], [address], [place] [facility], 1 10:33:29 Problem Notes None recorded. Procedures Surgical History Date Name Laterality Status Provider Name and Address Organization Details Recorded Time 5 Most Recent Mammogram completed Cristina Brink in [facility], 05/17/2024 12:07:05 3 Most Recent Bone Density completed Cristina Brink in [facility], 05/27/2022 09:40:14 4 Other completed Cristina Meczguanakito Brink in [facility], 09/08/2014 10:14:06 200 9 Other completed Cristina Brink in [facility], 09/08/2014 10:14:06 199 7 Breast Biopsy completed Cristina Brink in [facility], 09/08/2014 10:14:06 Imaging Results Imaging Date Name Status LastModified by Thomas serrano Details LastModified Time 05/14/2017 MAMMO, screening, digital, bilateral completed [address] [facility] [address] [address], [place], [address], 05/15/2017 08:25:50 11/13/2017 bone density completed kelsy [employer] [facility] Diagnosit Imaging Dept [address] [place] [address], [address], 03/20/2018 10:59:20 11/13/2017 bone density [email or web address] [address] [place], [address], 11/20/2017 13:35:39 05/23/2018 MAMMO, screening, digital, bilateral completed [address] Diagnosit Imaging Dept [address] [place] [address], [address], 05/24/2018 16:17:09 05/26/2019 MAMMO, screening, digital, bilateral completed [address] Diagnosit Imaging Dept [address] [place] [address], [address], 05/26/2019 11:23:18 2022 MAMMO, screening, digital, bilateral completed [address] Diagnosit Imaging Dept [address] [place] [address], [address], 2022 09:28:21 12/06/2023 MAMMO, screening, digital, bilateral completed [address] Diagnosit Imaging Dept [address] [place] [address], [address], 03/24/2024 10:59:11 12/06/2023 MAMMO, screening, digital, bilateral completed [address] Diagnosit Imaging Dept [address] [place] [address], [address], 03/24/2024 12:23:45 12/06/2023 MAMMO, screening, digital, bilateral completed [address] Diagnosit Imaging Dept [address] [place] [address], [address], 03/25/2024 12:06:22 04/13/2024 MAMMO, diagnostic, digital, unilateral completed [facility] Diagnosit Imaging Dept [address] [place] [address], [address], 04/14/2024 11:55:43 04/13/2024 US, breast, unilateral, complete completed [address] [place], [address], 04/14/2024 11:55:43 04/13/[address] [facility] [facility] [facility] [address] [place] [address], [id number], 04/19/2024 09:31:54 Procedure Notes None recorded. Medical Equipment None Reported. Allergies No known drug allergies Medications Name Sig Start Date Stop Date Status Note LastModified by Organization Details LastModified Time prednisone 10 mg tablet TAKE 3 TABS FOR 3 DAYS, 2 TABS FOR 3 DAYS, 1 TAB FOR 3 DAYS active Not Available Not Available No t Available Estring 2 mg (7.5 mcg/24 hour) vaginal ring active Not Available Not Available Not Available gabapentin 600 mg tablet TAKE 1 TABLET BY MOUTH EVERYDAY AT BEDTIME active Not Available Not Available No t Available loperamide 2 mg capsule TAKE 1 CAPSULE BY MOUTH 4 TIMES DAILY NEEDED FOR DIARRHEA. active Not Available Not Available No t Available trazodone 50 mg tablet 10/10 completed Not Available Not Available Not Available azithromyci n 250 mg tablet TAKE 2 TABLETS BY MOUTH TODAY, THEN TAKE 1 TABLET DAILY FOR 4 DAYS 05/27 completed Not Available Not Available Not Available fluconazole 150 mg tablet Take 1 tablet every day by oral route for 1 day. active Not Available Not Available No t Available valacyclovi r 1 gram tablet TAKE 2 TABLETS BY MOUTH 2 TIMES DAILY FOR 1 DAY. active Not Available Not Available No t Available cephalexin 250 mg capsule TAKE 1 CAPSULE BY MOUTH EVERY DAY NEEDED active Not Available Not Available No t Available hydrocodone 5 mg-acetamin ophen 325 mg tablet 10/10 completed Not Available Not Available Not Available phenazopyri dine 200 mg tablet active Not Available Not Available Not Available prednisone 20 mg tablet TAKE 2 TABLETS BY MOUTH DAILY FOR 5 DAYS 03/24 completed Not Available Not Available Not Available ciprofloxac in 500 mg tablet 09/13 completed Not Available Not Available Not Available sulfamethox azole 800 mg-trimetho prim 160 mg tablet TAKE 1 TABLET BY MOUTH TWICE A DAY 05/27 completed Not Available Not Available Not Available peg-electro lyte solution 420 gram oral solution active Not Available Not Available Not Available tramadol 50 mg tablet TAKE 1 TABLET BY MOUTH EVERY 6 HOURS NEEDED FOR PAIN FOR UP TO 7 DAYS. 03/24 completed Not Available Not Available Not Available butalbital- acetaminoph en-caffeine 50 mg-325 mg-40 mg tablet TAKE 1 TABLET BY MOUTH EVERY 4 HOURS NEEDED FOR PAIN FOR HEADACHES 03/24 completed Not Available Not Available Not Available oxycodone-a cetaminophe n 5 mg-325 mg tablet TAKE 1 TABLET BY MOUTH EVERY 6 HOURS NEEDED FOR PAIN 05/25 completed Not Available Not Available Not Available terbinafine HCl 250 mg tablet TAKE 1 TAB BY MOUTH DAILY. 09/13 completed Not Available Not Available Not Available alprazolam 0.5 mg tablet TAKE 1 TABLET (0.5 MG TOTAL) BY MOUTH AT BEDTIME NEEDED FOR SLEEP. MAX DAILY AMOUNT: 0.5 MG active Not Available Not Available No t Available famotidine 20 mg tablet TAKE 1 TABLET BY MOUTH 2 TIMES DAILY FOR 20 DOSES WHILE ON STEROIDS active Not Available Not Available No t Available magnesium oxide 400 mg (241.3 mg magnesium) tablet TAKE 1 TABLET BY MOUTH TWICE A DAY FOR 90 DAYS 10/10 completed Not Available Not Available Not Available trazodone 100 mg tablet TAKE 1 TABLET BY MOUTH EVERY DAY AT BEDTIME NEEDED FOR SLEEP active Not Available Not Available No t Available phenazopyri dine 100 mg tablet TAKE 2 TABS BY MOUTH 3 TIMES DAILY NEEDED FOR PAIN FOR UP TO 3 DAYS. 05/25 completed Not Available Not Available Not Available potassium citrate ER 10 mEq (1,080 mg) tablet,exte nded release active Not Available Not Available Not Available benzonatate 100 mg capsule TAKE 1 CAPSULE BY MOUTH TWICE A DAY FOR COUGH FOR 5 DAYS 03/24 completed Not Available Not Available Not Available econazole nitrate 1 % topical cream APPLY EVERY DAY FOR 3 CONSECUTI VE WEEKS 05/27 completed Not Available Not Available Not Available cephalexin 500 mg capsule TAKE 1 CAPSULE BY MOUTH AT BEDTIME NEEDED 05/27 completed Not Available Not Available Not Available triamcinolo ne acetonide 0.1 % topical ointment Apply 1 applicati on twice a day by topical route as needed for 30 days. active Not Available Not Available No t Available hydrochloro thiazide 12.5 mg capsule active Not Available Not Available Not Available butalbital- aspirin-caf feine 50 mg-325 mg-40 mg capsule TAKE 1 CAPSULE BY MOUTH EVERY 4 HOURS NEEDED FOR PAIN 05/25 completed Not Available Not Available Not Available oxybutynin chloride ER 5 mg tablet,exte nded release 24 hr TAKE 1 TABLET BY MOUTH EVERY DAY 05/27 completed Not Available Not Available Not Available gabapentin 300 mg capsule TAKE 2 CAPSULES BY MOUTH DAILY AT BEDTIME 03/24 completed Not Available Not Available Not Available amoxicillin 250 mg capsule TAKE 1 CAPSULE BY MOUTH THREE TIMES A DAY 05/25 completed Not Available Not Available Not Available hydrochloro thiazide 25 mg tablet TAKE 1 TAB BY MOUTH DAILY. 05/27 completed Not Available Not Available Not Available gabapentin 100 mg capsule TAKE 2 CAPSULES BY MOUTH AT BEDTIME 03/24 completed Not Available Not Available Not Available estradiol 0.5 mg tablet 09/13 completed Not Available Not Available Not Available lorazepam 1 mg tablet 10/10 completed Not Available Not Available Not Available levofloxaci n 500 mg tablet active Not Available Not Available Not Available methylpredn isolone 4 mg tablets in a dose pack TAKE 6 TABLETS ON DAY 1 DIRECTED ON PACKAGE AND DECREASE BY 1 TAB EACH DAY FOR A TOTAL OF 6 DAYS active Not Available Not Available No t Available albuterol sulfate HFA 90 mcg/actuati on aerosol inhaler INHALE 2 PUFFS INTO THE LUNGS EVERY 4 HOURS NEEDED FOR COUGH OR WHEEZING. active Not Available Not Available No t Available celecoxib 100 mg capsule TAKE 1 TABLET ORALLY 2 TIMES A DAY FOR 30 DAYS active Not Available Not Available No t Available fluticasone propionate 50 mcg/actuati on nasal spray,suspe nsion SPRAY 2 SPRAYS INTO EACH NOSTRIL EVERY DAY active Not Available Not Available No t Available doxycycline hyclate 100 mg tablet TAKE 1 TABLET BY MOUTH TWICE A DAY FOR 7 DAYS 03/24 completed Not Available Not Available Not Available sulindac 200 mg tablet 10/10 completed Not Available Not Available Not Available diazepam 5 mg tablet 10/10 completed Not Available Not Available Not Available amoxicillin 875 mg-potassiu m clavulanate 125 mg tablet TAKE 1 TABLET BY MOUTH TWICE A DAY FOR 10 DAYS 03/24 completed Not Available Not Available Not Available amoxicillin 500 mg-potassiu m clavulanate 125 mg tablet TAKE 1 TABLET BY MOUTH TWICE A DAY FOR 5 DAYS 05/25 completed Not Available Not Available Not Available tobramycin 0.3 %-dexametha sone 0.1 % eye drops,suspe nsion PLACE 1 DROP TWICE/DAY BOTH EYES X 1 WEEK active Not Available Not Available No t Available oxycodone 5 mg tablet TAKE 1 TABS BY MOUTH EVERY 12 HOURS NEEDED SEVERE PAIN 03/24 completed Not Available Not Available Not Available neomycin 3.5 mg/g-polymy jose B 10,000 unit/g-dexa meth 0.1 % eye oint APPLY INTO BOTH EYES EVERY DAY AT BEDTIME 05/27 completed Not Available Not Available Not Available Pneumovax-2 3 25 mcg/0.5 mL injection syringe TO BE ADMINISTE RED BY PHARMACIS T active Not Available Not Available No t Available escitalopra m 10 mg tablet TAKE 1 TABLET BY MOUTH EVERY DAY active Not Available Not Available No t Available cyclobenzap rine 5 mg tablet TAKE 1 TABLET BY MOUTH 2 TIMES DAILY NEEDED FOR MUSCLE SPASMS. 03/24 completed Not Available Not Available Not Available escitalopra m 5 mg tablet TAKE 1 TABLET BY MOUTH EVERY DAY 03/24 completed Not Available Not Available Not Available mirtazapine 7.5 mg tablet 05/27 completed Not Available Not Available Not Available nitrofurant oin monohydrate /macrocryst als 100 mg capsule active Not Available Not Available Not Available ibandronate 150 mg tablet TAKE 1 TABLET BY MOUTH EVERY MONTH\ 09/13 completed Not Available Not Available Not Available hydrocodone 7.5 mg-acetamin ophen 300 mg tablet active Not Available Not Available No t Available Zostavax (PF) 19,400 unit/0.65 mL subcutaneou s suspension TO BE ADMINISTE RED BY PHARMACIS T FOR IMMUNIZAT ION active Not Available Not Available No t Available Afluria 45 mcg (15 mcg x 3)/0.5 mL intramuscul ar suspension TO BE ADMINISTE RED BY PHARMACIS T FOR IMMUNIZAT ION active Not Available Not Available No t Available Afluria 4066-4640 (PF) 45 mcg (15 mcg x 3)/0.5 mL IM syringe USE DIRECTED active Not Available Not Available No t Available Fluarix Quad (PF) 60 mcg (15 mcg x 4)/0.5 mL IM syringe TO BE ADMINISTE RED BY PHARMACIS T FOR IMMUNIZAT ION active Not Available Not Available No t Available Flucelvax Quad [id number] (PF) 60 mcg (15 mcg x 4)/0.5 mL IM syringe active Not Available Not Available N ot Available Wixela Inhub 250 mcg-50 mcg/dose powder for inhalation USE 1 INHALATIO N ORALLY TWICE DAILY active Not Available Not Available No t Available Wixela Inhub 100 mcg-50 mcg/dose powder for inhalation INHALE 1 PUFF INTO THE LUNGS EVERY 12 HOURS active Not Available Not Available No t Available Fluad Quad (6 5yr up)(PF) 60 mcg (15 mcg x 4)/0.5mL IM syringe PHARMACY ADMINISTE RED active Not Available Not Available No t Available Vitals Date Recorded Body height Body mass index (BMI) Body weight Heart rate Systolic blood pressure Diastolic blood pressure Provider Name and Address Organization Details Last Updated DateTime 8 157.48 cm 19.8 kg/m2 30283.9 8 g 73 /min 112 mm[Hg] 65 mm[Hg] Cristina Valenzuela [facility] - [facility], 8 13:25:15 Date Recorded Body weight Body mass index (BMI) Body height Body temperature Heart rate Systolic blood pressure Diastolic blood pressure Provider Name and Address Organization Details Last Updated DateTime 1 54543.4 3 g 20.9 kg/m2 158.75 cm 97.3 [degF] 67 /min 145 mm[Hg] 75 mm[Hg] Cristina Valenzuela MA - [facility], 1 09:51:08 Date Recorded Body height Body mass index (BMI) Body weight Heart rate Systolic blood pressure Diastolic blood pressure Provider Name and Address Organization Details Last Updated DateTime 3 157.48 cm 20.5 kg/m2 64266.0 6 g 74 /min 144 mm[Hg] 74 mm[Hg] Cristina Valenzuela MA - [facility], 3 09:33:14 Date Recorded Body height Body mass index (BMI) Body weight Body temperature Heart rate Systolic blood pressure Diastolic blood pressure Provider Name and Address Organization Details Last Updated DateTime 5 157.48 cm 19.9 kg/m2 47094.5 7 g 97.2 [degF] 68 /min 124 mm[Hg] 76 mm[Hg] Cristina Valenzuela MA - [facility], 5 10:21:02 Date Recorded Body height Body mass index (BMI) Body weight Heart rate Systolic blood pressure Diastolic blood pressure Provider Name and Address Organization Details Last Updated DateTime 7 157.48 cm 18.5 kg/m2 91336.5 5 g 76 /min 110 mm[Hg] 77 mm[Hg] Cristina Valenzuela MA - [facility], 7 09:56:53 Social History Question Answer Notes LastModified by Organizat ion Details LastModified Time Tobacco Smoking Status Former Smoker quit a long time ago Not Available [employer] 01/18/2020 03:19:39 What Is Your Level Of Alcohol Consumption? Moderate [id number] Information not available 01/18/2020 How Many Years Have You Consumed Alcohol? 40 Information not available 05/27/2022 What Is Your Level Of Caffeine Consumption? Moderate [id number] Information not available 01/18/2020 In The 14 Days Before Symptom Onset, Have You Had Close Contact With A Laboratory-confir med COVID-19 While That Case Was Ill? No Information not available 05/27/2022 In The 14 Days Before Symptom Onset, Have You Had Close Contact With A Person Who Is Under Investigation For COVID-19 While That Person Was Ill? No Information not available 05/27/2022 Have You Been To An Area Known To Be High Risk For COVID-19? No Information not available 05/27/2022 What Type Of Diet Are You Following? REGULAR [id number] Information not available 01/18/2020 Which Illicit Or Recreational Drugs Have You Used? No [id number] Information not available 01/18/2020 Do You Reside In Or Have You Traveled To An Area Where Ebola Virus Transmission Is Active? No [id number] Information not available 01/18/2020 Do You Or Have You Ever Used E-cigarettes Or Vape? Never Used Electronic Cigarettes Information not available 05/25/2020 Education 2 Year College Informatio n not available 09/08/2014 What Is Your Occupation? Retired. [id number] Information not available 01/18/2020 How Many Days In The Past Year Have You Had A Heavy Drinking Consumption (4+ Female, 5+ Male)? 2 Information no t available 10/10/2017 Are There Any Guns Present In Your Home? No Information not available 05/27/2022 High Number Of Sexual Partners Yes Information not available 09/13/2016 To Which Gender Do You Self-identify? Female Information not available 09/13/2016 Marital Status Informatio n not available 09/08/2014 What Was The Date Of Your Most Recent Tobacco Screening? 10/10/2017 [id number] Information not available 01/18/2020 Are You Sexually Active? Yes [id number] Information not available 01/18/2020 Do You Or Have You Ever Used Smokeless Tobacco? Never Used Smokeless Tobacco Information not available 05/25/2020 How Much Tobacco Do You Smoke? No [id number] Information not available 01/18/2020 General Stress Level High Information not available 09/13/2016 Do You Feel Stressed (tense, Restless, Nervous, Or Anxious, Or Unable To Sleep At Night)? [id number] Information not available 05/27/2022 Do You Use Any Illicit Or Recreational Drugs? No Information not available 05/27/2022 How Many Years Have You Smoked Tobacco? 15 [id number] Information not available 01/18/2020 Have You Recently (within The Last 12 Weeks, Or During A Current ) Traveled To Or Lived In A Zika-affected Area? No Information not available 09/13/2016 How Many Days In The Past Year Have You Consumed 4 Or More Drinks? 2 Information no t available 05/27/2022 Sex: Female Functional Status Question Answer Note LastModified by Organizat ion Details LastModified Time What is your exercise level? Occasional [id number] Information not available 01/18/2020 Mental Status None recorded. Family History Relationship Description Onset Age of this Age Resolved Age Notes LastModified by Organization Details LastModified Time Mother Malignant tumor of breast 47 52 Not available 08/16 10:26:13 Maternal Uncle Problem 51 55 he of some type of cancer , no way to know what it was Not available 09/08/2014 10:26:13 Maternal Aunt Malignant tumor of breast 60 Not available 09/2015 13:25:40 Maternal Grandmother Malignant tumor of breast 38 38 [email or web address] Not available 2014 12:02:57 Brother Malignant tumor of colon [email or web address] Not available 2020 09:54:41 Brother Malignant melanoma [email or web address] Not available 2024 10:26:23 Medical History Condition Response Anesthesia complications N High Blood Pressure N Candidate for MyRisk panel Y Thyroid Problems N Kidney or Bladder Problems N GI Problems N Lung Disease N Depression Y Defects or Inherited Disease Y History of Ovarian Cancer N Anemia N History of Breast Cancer N BRCA testing in past Y Psychiatric Illness N Anxiety Disorder N Diabetes N Arthritis Y Headaches or Migraines Y Infertility N Asthma Y History of Cancer N Endometriosis N Hepatitis N Heart Disease Y Hypertension N Gynecological History Statement/Question Response If Post Menopausal, Age at Menopause 54 Age at Menarche 16 Most Recent Mammogram 04/13/2024 Age at First Child 27 Most Recent Bone Density 03/21/2022 Obstetrics History GPAL:G 2 P 2 0 0 2 Type Value Full Term 2 Living 2 Total 2 Immunizations Vaccine Type Date Status Note Provider Nam e and Address Organization Details Recorded Time Pneumococcal Conjugate, unspecified formulation 6 completed Cristina Meczywor null, [place] - [facility], 09/13/2016 10:02:14 Influenza, split virus, quadrivalent, preservative 7 completed Cristina Meczywor null, [place] - [facility], 10/10/2017 13:30:27 zoster live 8 completed Cristina Meczywor null, [place] - [facility], 10/10/2017 13:31:05 Influenza, MDCK, quadrivalent, PF 7 completed Cristina Meczywor null, [place] - [facility], 03/24/2024 10:22:17 zoster recombinant 8 completed Cristina Meczywor null, [place] - [facility], 03/24/2024 10:22:17 zoster recombinant 8 completed Cristina Meczywor null, [place] - [facility], 03/24/2024 10:22:17 Influenza, high-dose, quadrivalent, PF 2 completed Cristina Meczywor null, [place] - [facility], 03/24/2024 10:22:17 Influenza, adjuvanted, quadrivalent, PF 0 completed Cristina Meczywor null, [place] - [facility], 03/24/2024 10:22:17 COVID-19, mRNA, LNP-S, PF, 30 mcg/0.3 mL dose 1 completed Cristina Meczywor null, [place] - [facility], 03/24/2024 10:22:17 COVID-19, mRNA, LNP-S, PF, 30 mcg/0.3 mL dose 1 completed Cristina Meczywor null, [place] - [facility], 03/24/2024 10:22:17 COVID-19, mRNA, LNP-S, PF, 30 mcg/0.3 mL dose 1 completed Cristina Meczywor null, [place] - [facility], 03/24/2024 10:22:17 COVID-19, mRNA, LNP-S, bivalent, PF, 50 mcg/0.5 mL or 25mcg/0.25 mL dose 2 completed Cristina Meczywor null, [place] - [facility], 03/24/2024 10:22:17 pneumococcal polysaccharide PPV23 2 completed Cristina Meczywor null, [place] - [facility], 03/24/2024 10:22:17 pneumococcal polysaccharide PPV23 6 completed Cristina Meczywor null, [place] - [facility], 03/24/2024 10:22:17 Tdap 3 completed Cristina Meczywor null, [place] - [facility], 03/24/2024 10:22:17 zoster live 4 completed Cristina Meczywor null, [place] - [facility], 03/24/2024 10:22:17 Influenza, high-dose, trivalent, PF 1 completed Cristina Meczywor null, [place] - [facility], 03/24/2024 10:22:17 Influenza, high-dose, trivalent, PF 9 completed Cristina Meczywor null, [place] - [facility], 03/24/2024 10:22:17 Influenza, split virus, trivalent, preservative 4 completed Cristina Meczywor null, [place] - [facility], 03/24/2024 10:22:17 Influenza, split virus, trivalent, preservative 5 completed Cristina Meczywor null, [place] - [facility], 03/24/2024 10:22:17 Influenza, split virus, quadrivalent, PF 6 completed Cristina peter [place] [facility], 03/24/2024 10:22:17 Influenza, split virus, quadrivalent, PF 8 completed Cristina peter [place] [facility], 03/24/2024 10:22:17 Past Encounters Encounter ID Performer Location Encounter Start Date Encounter Closed Date Diagnosis/Indication Diagnosis SNOMED-CT Code Diagnosis ICD10 Code Diagnosis Note [id number] CONSTANCE DEL CASTILLO MD [address] [facility],[address] [place] [address] 09/08/2014 09:45:50 09/08/2014 13:56:41 Specialized medical examination [id number] Screening for malignant neoplasm of rectum 592918811 Screening mammography 22684929 Menopausal syndrome 049613045 Family his tory of malignant neoplasm of breast in first degree relative [id number] CONSTANCE DEL CASTILLO MD [address] [place] [address],[address] [place] [address] 10/21/2014 10:14:57 10/21/2014 14:15:29 Osteoporosis 72416560 Vitamin D deficiency 73536493 Family his tory of malignant neoplasm of breast in first degree relative [id number] MD CONSTANCE Clarke MD [address] [place] [address], [address] [place] [address] 08/22/2015 12:56:46 08/22/2015 14:48:15 Specialized medical examination 77185187 Z01.419 Screening for malignant neoplasm of rectum 027840996 Z12.12 Screening mammography 24 137558 Z12.31 [id number] MD CONSTANCE Clarke MD [address] [facility] [place] [address] 09/13/2016 09:46:55 09/13/2016 11:59:37 Specialized medical examination 17722506 Z01.419 Screening for malignant neoplasm of rectum 965063840 Z12.12 Screening mammography 24 602244 Z12.31 Recurrent urinary tract infection 625068227 N39.0 Dysuria 73436582 R30.0 [id number] MD CONSTANCE Clarke MD [address] [place] [address],[address] [address] 10/10/2017 13:12:01 10/10/2017 14:31:54 Specialized medical examination 68307913 Z01.419 Screening for malignant neoplasm of rectum 666306737 Z12.12 Screening mammography 24 430558 Z12.31 Osteoporosis 99225042 M8 1.0 [id number] MD CONSTANCE Clarke MD [address] [place] [address],[address] [facility] [place] [address] 05/25/2020 09:46:09 05/25/2020 11:01:49 Screening for malignant neoplasm of cervix 917995563 Z12.4 Screening mammography 24 517343 Z12.31 Screening for osteoporosis 782439046 Z13.820 Exposure t o SARS-CoV-2 913348043 Z20.822 [id number] MD CONSTANCE Clarke MD [address] [place] [address],[address] [address] 05/27/2022 09:28:32 05/27/2022 11:14:18 Screening for malignant neoplasm of cervix 841193105 Z12.4 Screening mammography 24 497635 Z12.31 Screening for osteoporosis 489184772 N95.8 [id number] MD CONSTANCE Clarke MD [address] [place] [address] [place] [address] 03/24/2024 10:10:08 03/24/2024 12:16:17 Pain of left breast 7864873462 N64.4 Candidal vulvovaginitis 44101920 B37.31 Genital li garcia sclerosus 256710889 L90.0 Health Concerns Section Related Observation LastModified by Organization Detai ls LastModified Time None Recorded Concern Status LastModified by Organization Details LastModified Time None Recorded Advance Directives Directive None Recorded Payers Encounter Date Sequence Insurance Name Policy Number Policy Ibarra Covered Member ID Ibarra Member ID Guarantor Name 09/13/2016 1 [facility] (MEDICARE REPLACEMENT/AD VANTAGE - HMO) [id number] Geovanni Hilton [id number] Geovanni Hilton 10/10/2017 1 [facility] (MEDICARE REPLACEMENT/AD VANTAGE - HMO) [id number] Geovanni Gonyea [id number] Geovanni Gonyea 05/25/2020 1 [facility] (MEDICARE REPLACEMENT/AD VANTAGE - HMO) [id number] Geovanni Gonyea [id number] Geovanni Gonyea 05/27/2022 1 [facility] (MEDICARE REPLACEMENT/AD VANTAGE - HMO) [id number] Geovanni Gonyea [id number] Geovanni Gonyea 03/24/2024 1 [facility]: MEDICARE PPO BLUE (MEDICARE REPLACEMENT PPO) [id number] Geovanni Gonyea [id number] Geovanni Gonyea Notes Date Note Type Note Provider Name and Address Organization Details Recorded Time 09/13/2016 text/html She is here for annual exam, is doing well. She wonders if she has a UTI because she has on and off dysuria. She is taking post coital Keflex, from Dr. Ospina. Constance Del Castillo MD [address] [facility],[address], [place], [address], [facility], 09/13/2016 11:14:59 10/10/2017 text/html She is here for annual exam, is doing well. She has osteoporosis, had a T score of -3.3 in 2014, has not had a bone density test since then. She used Boniva for a year but stopped secondary to stomach pain, she has not had any since then. Constance Del Castillo MD [address] [facility],[address], [place], [address], [facility], 10/10/2017 14:08:18 05/25/2020 text/html She is here for annual exam, is legally blind. she has osteoporosis, saw an social organization professor nad did Reclast last year, she notes that her PCP ordered a bone density recently, It was no sales and service change leader my prior one we do not have that result. In 2018 the bone density was :T scores in 2018 were -2.7, -3.0, -3.1 and -3.2. note rom 09/2017: She is here for annual exam, is doing well. She has osteoporosis, had a T score of -3.3 in 2015, has not had a bone density test since then. She used Boniva for a year but stopped secondary to stomach pain, she has not had any since then. She is 5 ft 2, 108 pounds, has a thin frame. She will repeat bone density now. IF she still has osteoporosis we will rx Prolia as she has failed Boniva and could not tolerate oral medication. Constance Del Castillo MD [address] [facility] [facility],[address], [place], [address], [place] - [facility], 05/25/2020 10:34:20 05/27/2022 text/html She is here for annual exam, is legally blind. she has osteoporosis, is managed by her PCP. She has had rare., fleeting, sharp pains suprpaubically over the past year, very transient and mild to moderate. ____ Note from 11/2020: She is here for annual exam, is legally blind. she has osteoporosis, saw an social organization professor nad did Reclast last year, she notes that her PCP ordered a bone density recently, It was no sales and service change leader my prior one we do not have that result.In 2018 the bone density was :T scores in 2018 were -2.7, -3.0, -3.1 and -3.2. Constance Del Castillo MD [address] [facility],[address], [place], [address], [place] - [facility], 05/27/2022 10:05:42 03/24/2024 text/html She is here for a 3 month history of complaint of a pain in her left breast base, and also a 3 week hsitory of vaginal external discomfort zings occasionally, when she washes herself on the vulva. Last mammogram 12/08 by her ginnyroy, and showed dense breasts we do not have a copy of that. Note from 06/06: She is here for annual exam, is legally blind. she has osteoporosis, is managed by her PCP.She has had rare., fleeting, sharp pains suprpaubically over the past year, very transient and mild to moderate. Constance Del Castillo MD [address] [facility],[address], [place], [address], [place] - [facility], 03/24/2024 10:58:40 OBGyn Episode No OBEpisode recorded.
--- OUTSIDE RECORDS SUMMARY | 2024-05-20 11:45 | XMS_ITS | Clinical Summary ---
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 12/11/19 24 Active loperamide (IMODIUM) 2 mg capsule TAKE 1 CAPSULE BY MOUTH 4 TIMES DAILY NEEDED FOR DIARRHEA. 11/24/19 24 Active fluticasone propionate (FLONASE) 50 mcg/actuation nasal spray SPRAY 2 SPRAYS INTO EACH NOSTRIL EVERY DAY 06/27/19 24 Active escitalopram (LEXAPRO) 10 mg tablet TAKE 1 TABLET BY MOUTH EVERY DAY 90 tablet 1 02/06/20 24 Active traZODone (DESYREL) 100 mg tablet TAKE 1 TABLET BY MOUTH EVERY DAY AT BEDTIME NEEDED FOR SLEEP 90 tablet 03/12/20 24 Active ALPRAZolam (XANAX) 0.5 mg tablet Take 1 tablet (0.5 mg total) by mouth at bedtime as needed for sleep. Max Daily Amount: 0.5 mg 30 tablet 03/15/20 24 Active Wixela Inhub 250-50 mcg/dose diskus inhaler USE 1 INHALATION ORALLY TWICE DAILY 1 each 4 04/07/19 25 Active gabapentin (NEURONTIN) 600 mg tabletIndications :Lumbar radiculopathy Take 1 tablet (600 mg total) by mouth at bedtime. 30 each 2 05/07/19 25 025 Active gabapentin (NEURONTIN) 600 mg tablet 1 tab PO at bedtime 11/11/19 24 025 Discontin ued(Reord er) gabapentin (NEURONTIN) 600 mg tabletIndications :Lumbar radiculopathy Take 1 tablet (600 mg total) by mouth at bedtime. 30 each 2 05/06/19 25 025 Discontin ued(Reord er) Active Problems Problem Noted Date Diagnosed Date Fracture of distal end of radius and ulna 2023 Fracture of humerus 05/15/2023 Menopausal syndrome 05/15/2023 Vitamin D deficiency 05/15/2023 Lumbar radiculopathy 04/08/2023 Overview (02/03/2024): Last Assessment & Plan: Patient is 6 months s/p right far lateral L5-S1 discectomy. She gets fairly frequent flareups of pain, typically right buttock, a few weeks ago had 3-5 days of right lateral leg pain to the foot. She has persistent residual right foot pain and is somewhat lateral calf postop, but has been staying active, doing her stretches and exercises. She will use heat or ice on the buttock area as needed. She has seen Dr. Elissa Herron in the past for injection left hip bursa which helped her. She has an upcoming appointment with Dr. Herron in December, july consider getting right piriformis injection, which they discussed in the past. She has been taking gabapentin 600 mg at bedtime, would like a refill. She just got a new puppy, which has kept her even more active, but she has been feeling good the last few days. Incidentally she also has been on 2 rounds of oral steroids for her asthma, has 1 more day left, which may be helping her pain as well. She has a vacation scheduled in January, is a little nervous she may have significant flareup while traveling. Ms. Hilton has persistent flareups of pain, could be SI joint pain, piriformis syndrome, or radiculopathy. She is hesitant to try SI joint injection. We talked about trying an SI belt, she likes the idea and plans to order it from [employer]. I asked her to call with an update to let me know if it is helping her. We talked about trying lidocaine patches, continue heat/ice, stretching and exercises. She would like to go back to physical therapy, which has helped her in the past. Prescription provided. If she has another flareup of leg pain, we can check MRI lumbar spine with and without contrast at [facility]. All questions answered. Insomnia due to medical condition 09/24/2022 Mild intermittent asthma without complication Osteoporosis 04/07/2020 Overview (02/03/2024): zoledronic acid infusion 03/15/2019; Prolia 60 mg 07/06/20 BONE DENSITY 04/06 ?? Lumbar Spine T-score is -1.7 (SD relative to 20-29 y/o adult) Z-score is +0.3 (SD relative to age matched peers) This is consistent with osteopenia by criteria defined by the WHO. ?? Left Hip T-score is -3.3 Z-score is -0.6 This is consistent with osteoporosis by criteria defined by the WHO. Retinitis pigmentosa 02/10/2018 Anxiety disorder 08/17/2015 Recurrent UTI 10/11/2014 Allergic rhinitis 09/08/2013 Kidney stones, calcium oxalate 09/08/2013 Overview (02/03/2024): Dr reed Legally blind 09/08/2013 Overview (02/03/2024): Retinitis pigmentosa Sinus headache 09/08/2013 Encounters Date Type Department Care Team Description 05/06/2024 Telephone Neurosurgery [facility] [address] [place] [address] Joanie Sena MA 04/13/2024 10:57 AM EST - 04/13/2024 11:59 PM EST Hospital Encounter [facility] Ultrasound [address] [place] [phone] Mastodynia Discharge Disposition: Home or Self Care 04/13/2024 10:13 AM EST - 04/13/2024 11:59 PM EST Hospital Encounter [facility] [address] [place] [phone] Mastodynia Discharge Disposition: Home or Self Care 04/13/2024 10:12 AM EST - 04/13/2024 11:59 PM EST Hospital Encounter [facility] Bone Density [address] [place] [phone] Age-related osteoporosis without current pathological fracture Discharge Disposition: Home or Self Care 03/15/2024 11:30 AM EST Office Visit Adult Medicine [facility] [address] [place] [phone] Shaka Durant PA Adult general medical examination (Primary Dx); Retinitis pigmentosa; Legally blind; Age-related osteoporosis without current pathological fracture; Vitamin D deficiency; Anxiety disorder, unspecified type; Screening for cardiovascular condition; Screening, lipid; Acute cough; Need for vaccination against Streptococcus pneumoniae; RSV exposure; Malaise; Acute upper respiratory infection, unspecified 02/23/2024 Telephone Walk-In [address] [phone] Linda Leung NP Results 02/20/2024 10:25 AM EST - 02/20/2024 11:59 PM EST Hospital Encounter Walk-In [address] [phone] Subacute cough Discharge Disposition: Home or Self Care 02/20/2024 10:00 AM EST Office Visit Walk-In [address] [phone] Linda Leung NP Subacute cough (Primary Dx) from Last 3 Months Immunizations Name Administration Dates Next Due Influenza Quadravalent, 0.5m l (Fluad) 65yo and older 11/24/2022,11/25/2019 Influenza Quadravalent, 0.5m l (Fluzone High-dose) 65yo and older 11/22/2021 Influenza Quadravalent, MDCK , 0.5ml, preservative free (Flucelvax) 6mo and older 11/25/2016 Influenza Quadravalent, MDCK , 0.5ml, with preservative (Flucelvax) 6mo and older 12/20/2019,01/01/2017,10/24/2015 Influenza Quadrivalent, 0.5m l, preservative free (Fluarix; FluLaval; Fluzone) ages 6mo and older (Afluria) 3yo and older 10/31/2017,10/27/2015 Influenza Quadrivalent, with preservative (Fluzone; Afluria) 6mo and older 12/20/2019,01/01/2017,10/24/2015 Influenza trivalent, 0.5mL ( Fluad) 65yo and older 11/20/2020,11/24/2018 Influenza trivalent, 0.5mL ( Fluzone High-dose) 65yo and older 12/20/2023,11/20/2020,11/24/2018 Influenza trivalent, 0.5mL, preservative free (Fluarix; FluLaval; Fluzone) ages 6mo and older (Afluria) 3 years and older 11/24/2022,10/31/2017,10/27/2015 Influenza trivalent, with pr eservative (Fluzone; Afluria) 6mo and older 11/25/2019,12/24/2014,12/15/2014,12/19,12/15/2013 Influenza, Unspecified 11/24/2021 Moderna SARS-CoV-2 COVID-19, mRNA, LNP-S, preservative free 04/25/2020 PPD Test 02/14/2015 Pfizer SARS-CoV-2 COVID-19, mRNA, LNP-S, preservative free 05/04/2020,04/13/2020 Pneumococcal Conjugate 01/03/2016 Pneumococcal conjugate 20 va lent (Prevnar 20, PCV 20) 2mo and older 03/15/2024 Pneumococcal polysaccharide 23 valent (Pneumovax 23) 2yo and older 03/22/2021,01/03/2016 RSV, bivalent, protein subun it RSVpreF, 0.5mL, Preservative Free (Arexvy) 60yo and older 11/24/2022 Respiratory syncytial virus (RSV), unspecified 11/24/2022 SARS-COV-2 (COVID-19) Vaccin e, Unspecified 04/25/2020 Td Tetanus diptheria (Tdvax) 7yo and older 02/24/2023 Tdap Tetanus diptheria acell ular pertussis (Boostrix; Adacel) 7yo and older 08/15/2012 Zoster Live 10/07/2017,01/15/2014 Zoster recombinant (Shingrix ) 19yo and older 12/25/2017,10/07/2017 Surgical History Surgery Date Site/Laterality Comments KNEE ARTHROSCOPY W/ MENISCAL REPAIR PROCEDURE: TX ARTHROSCOPY KNEE W/MENISCUS RPR MEDIAL/LATERAL; COMMENT: 2002 COLONOSCOPY 04/13/2015 PROCEDURE: HISTORICAL COLONOSCOPY; COMMENT: colon polyp, diverticulosis OTHER SURGICAL HISTORY 1986 PROCEDURE: HISTORY OTHER; COMMENT: tarsal tunnel surgery TUBAL LIGATION 1993 PROCEDURE: HISTORICAL TUBAL LIGATION OTHER SURGICAL HISTORY PROCEDURE: HISTORY OTHER; COMMENT: transurethral kidney stone removal CARPAL TUNNEL RELEASE 05/26/2018 Right PROCEDURE: HISTORICAL CARPAL TUNNEL REL CATARACT EXTRACTION Bilateral PROCEDURE: HISTORICAL CATARACT REMOVAL; COMMENT: Dr Alejandro. cataract and stenting for glaucoma OTHER SURGICAL HISTORY 05/06/2023 PROCEDURE: TX LAMNOTMY INCL W/DCMPRSN NRV ROOT 1 INTRSPC LUMBR; COMMENT: Right L5-S1 far lateral MIS discectomy, Dr. Sapp BREAST CYST EXCISION Left Medical History Medical History Date Comments Sinus headache 09/08/2013 DX:Sinus headach e Allergic rhinitis 09/08/2013 DX:Allergic rh initis Kidney stones, calcium oxalate 09/08/2013 D X:Kidney stones, calcium oxalate Kidney stones, calcium oxalate 09/08/2013 D X:Kidney stones, calcium oxalate; COMMENT: Dr reed Retinitis pigmentosa 02/10/2018 DX:Retiniti s pigmentosa Essential hypertension 11/13/2018 DX:Essent ial hypertension Osteoporosis 04/07/2020 DX:Osteoporosis; COMMENT: BONE DENSITY 04/06 ?? Lumbar Spine T-score is -1.7 (SD relative to 20-29 y/o adult) Z-score is +0.3 (SD relative to age matched peers) This is consistent with osteopenia by criteria defined by the WHO. ?? Left Hip T-score is -3.3 Z-score is -0.6 This is consistent with osteoporosis by criteria defined by the WHO. Legally blind DX:Legally blind Diarrhea DX:Diarrhea Stress DX:Stress Family history of colon cancer D X:Family history of colon cancer Irritable bowel syndrome DX:Irri table bowel syndrome Arthritis Asthma Family History Medical History Relation Name Comments Colon cancer Brother Melanoma Brother Other: retinitis pigmentosa Brother Hypertension Father Cristobal Romero Stroke Father Cristobal Romero No Known Problems Maternal Grandfather No Known Problems Maternal Grandmother Breast cancer Mother Other: Other Mother cancer No Known Problems Paternal Grandfather No Known Problems Paternal Grandmother Relation Name Status Comments Brother Alive Father Cristobal Romero (Age 68) Maternal Grandfather Maternal Grandmother Mother (Age 52) Paternal Grandfather Paternal Grandmother Sister Alive Social History Tobacco Use Types Packs/Day Years [...] Record ed Within the last 3 months, jenifer stock many times did you visit the emergency [...] your loved ones. For example, early childhood worker or elderly care for an older adult? [...] on file Sexual Orientation Not on file Obstetrics History Para Term AB IAB SAB Ectopic Multiple Livin g Live Births 2 Last Filed Vital Signs Vital Sign Reading Time Taken Comments Blood Pressure 137/74 03/15/2024 11:22 AM EST Pulse 63 03/15/2024 11:22 AM EST Temperature 36.5 ??C (97.7 ??F) 03/15/2024 11:[address] Respiratory Rate - - Oxygen Saturation 98% 02/20/2024 10:08 AM EST Inhaled Oxygen Concentration - - Weight 49.9 kg (110 lb) 04/13/2024 10:23 AM EST Height 157.5 cm (5' 2 ) 04/13/2024 10:23 AM EST Body Mass Index 20.12 04/13/2024 10:23 AM EST Plan of Treatment Upcoming Encounters Date Type Department Care Team (Late st Contact Info) Description 06/02/2024 10:15 AM EDT Consult Endocrinology - [address] [phone] Kandis Flynn PA [address] [place] [phone] Health Maintenance Due Date Last Done Comments Medicare Annual Wellness Visit 02/23/2022 COVID-19 Vaccine ( season) 2023 11/24/2021, 01/05/2021, 05/04/2020, Additional history exists Depression Screening 03/08/2025 03/08/2024 Falls Risk Assessment 03/15/2025 03/15/2024 Social Influencers of Health Screening 03/15/2025 03/15/2024 Osteoporosis Screening (Bone Density Screening) 04/13/2025 04/13/2024, 03/14/2023, 01/31/2022, Additional history exists Breast Cancer Screening 04/13/2026 04/13/19, 12/08/2023, 2022, Additional history exists Colorectal Cancer Screening: Colonoscopy 06/11/2027 06/10/2022 Cholesterol Screening (Lipid Panel) 03/24/2029 03/24/2024, 02/26/2023 DTaP,Tdap,and Td Vaccines (3 - Td or Tdap) 02/24/2033 02/24/2023, 08/15/2012 Zoster Vaccines Completed 12/25/2017, 09/15, 10/07/2017, Additional history exists Hepatitis C Screening Completed 01/06/2019 RSV Immunization Patients 60+ Years Old Completed 11/24/2022, 11/24/2022 RSV Immunization Patients Under 20 months Aged Out 11/24/2022 No longer eligible based on patient's age to complete this topic Influenza Vaccine Completed 12/20/2023, , 11/24/2022, Additional history exists Pneumococcal Vaccine: 50+ Years Completed 03/15/2024, 03/22/2021, 01/03/2016 HIB Vaccines Aged Out No longer eligi ble based on patient's age to complete this topic HPV Vaccines Aged Out No longer eligi ble based on patient's age to complete this topic Hepatitis A Vaccines Aged Out No long er eligible based on patient's age to complete this topic Hepatitis B Vaccines Aged Out No long er eligible based on patient's age to complete this topic IPV Vaccines Aged Out No longer eligi ble based on patient's age to complete this topic MMR Vaccines Aged Out No longer eligi ble based on patient's age to complete this topic Meningococcal ACWY Vaccine Aged Out N o longer eligible based on patient's age to complete this topic Meningococcal B Vacine Aged Out No lo nger eligible based on patient's age to complete this topic Varicella Vaccines Aged Out No longer eligible based on patient's age to complete this topic Procedures Procedure Name Priority Date/Time Associated Diagnosis Comments MG MAMMO DIGITAL DIAGNOSTIC W ROB LEFT Routine 04/13/2024 1:12 PM EST Mastodynia US BREAST LIMITED LEFT Routine 04/13/2024 11:20 AM EST Mastodynia BD BONE DENSITY DXA AXIAL SKELETON Routine 04/13/2024 10:59 AM EST Age-related osteoporosis without current pathological fracture LIPID PANEL WITH REFLEX TO DIRECT LDL Routine 03/24/2024 11:27 AM EST Screening, lipid VITAMIN D 1,25 DIHYDROXY Routine 03/24/2024 11:27 AM EST Vitamin D deficiency [id number], RSV, FLU A AND B QUALITATIVE RT-PCR, LOCAL REFERENCE LAB Routine 03/15/2024 12:46 PM EST RSV exposure Malaise Acute upper respiratory infection, unspecified COMPREHENSIVE METABOLIC PANEL Routine 03/15/2024 12:31 PM EST Screening for cardiovascular condition XR CHEST 2 VIEWS STAT 02/20/2024 10:3 7 AM EST Subacute cough HM COLONOSCOPY Routine 06/10/2022 HEPATITIS C SCREENING Routine 01/06/2019 from Last 3 Months or Most Recently Relevant to Health Maintenance Results * MG Mammo Digital Diagnostic w Rob Left (04/13/2024 1:12 PM EST) Anatomical Region Laterality Modality Breast Left Mammography 04/13/2024 11:2 7 AM EST Impressions 04/13/2024 11:31 AM EST No mammographic or sonographic evidence of malignancy ?? No suspicious interval change The pain should be managed on the basis of the clinical breast exam ASSESSMENT: ?? BI-RADS 1: NEGATIVE RECOMMENDATION(S): 1: Clinical correlation recommended LEFT Resume screening -------- FINAL REPORT -------- Dictated By: Sixto Bravo Dictated Date: 04/13/2024 11:27 ET Assigned Physician: Sixto Bravo Reviewed and Electronically Signed By: Sixto Bravo Signed Date: 04/13/2024 11:31 ET Workstation ID: [id number] Transcribed By: Self Edit Transcribed Date: 04/13/2024 11:27 ET Narrative 04/13/2024 11:31 AM EST EXAM: ??DIAGNOSTIC MAMMOGRAPHY, UNILATERAL LEFT ULTRASOUND: DIAGNOSTIC ULTRASOUND, UNILATERAL LEFT HISTORY: ??Abnormal clinical breast exam. ??Left breast pain inferiorly from the 4 o'clock to the 7 o'clock position. Patient reports remote excision left breast 30 years ago for a benign process COMPARISON: ??Left mammography 12/06/2023, 2022, 11/15/2021, 10/12/2020 TECHNIQUE: Synthesized views of the left breast in the CC and MLO projections. ??Tomosynthesis of the left breast in the CC and MLO projections. ADDITIONAL IMAGING: None High-frequency linear transducer ultrasound of the left breast targeted to the area of clinical concern. Computer-aided detection was employed with the iCAD ??profound AI 3-D. TISSUE DENSITY: The breasts are heterogeneously dense, which may obscure small masses. (BI-RADS category C) FINDINGS: MAMMOGRAPHY: LEFT BREAST: There is no suspicious finding in the inferior left breast which might correlate with the patient's symptoms. ?? No suspicious change in the region of a biopsy site marker. ULTRASOUND: LEFT BREAST The entire inferior left breast was examined with a high-frequency linear transducer. The symptoms correlate to the inframammary fold and region of the chest wall No suspicious mass. ??No suspicious area of altered echotexture Procedure Note Sixto Bravo MD - 04/13/2024 EXAM: DIAGNOSTIC MAMMOGRAPHY, UNILATERAL LEFT ULTRASOUND: DIAGNOSTIC ULTRASOUND, UNILATERAL LEFT HISTORY: Abnormal clinical breast exam. Left breast pain inferiorly fromthe 4 o'clock to the 7 o'clock position. Patient reports remote excision left breast 30 years ago for a benignprocess COMPARISON: Left mammography 12/06/2023, 2022, 11/15/2021,10/12/2020 TECHNIQUE: Synthesized views of the left breast in the CC and MLOprojections. Tomosynthesis of the left breast in the CC and MLOprojections. ADDITIONAL IMAGING: None High-frequency linear transducer ultrasound of the left breast targeted tothe area of clinical concern. Computer-aided detection was employed with the [employer] 3-D. TISSUE DENSITY: The breasts are heterogeneously dense, which may obscuresmall masses. (BI-RADS category C) FINDINGS: MAMMOGRAPHY: LEFT BREAST: There is no suspicious finding in the inferior left breast which mightcorrelate with the patient's symptoms. No suspicious change in the region of a biopsy site marker. ULTRASOUND: LEFT BREAST The entire inferior left breast was examined with a high-frequency lineartransducer. The symptoms correlate to the inframammary fold and region of the chestwall No suspicious mass. No suspicious area of altered echotexture IMPRESSION: No mammographic or sonographic evidence of malignancy No suspicious interval change The pain should be managed on the basis of the clinical breast exam ASSESSMENT: BI-RADS 1: NEGATIVE RECOMMENDATION(S): 1: Clinical correlation recommended LEFT Resume screening -------- FINAL REPORT -------- Dictated By: Sixto Bravo Dictated Date: 04/13/2024 11:27 ET Assigned Physician: Sixto Bravo Reviewed and Electronically Signed By: Sixto Bravo Signed Date: 04/13/2024 11:31 ET Workstation ID: [id number] Transcribed By: Self Edit Transcribed Date: 04/13/2024 11:27 ET us Constance Del Castillo MD IMG BI PROCEDURES Final Resu lt * US Breast Limited Left (04/13/2024 11:20 AM EST) Anatomical Region Laterality Modality Breast Left Ultrasound 04/13/2024 11:2 7 AM EST Impressions 04/13/2024 11:31 AM EST No mammographic or sonographic evidence of malignancy ?? No suspicious interval change The pain should be managed on the basis of the clinical breast exam ASSESSMENT: ?? BI-RADS 1: NEGATIVE RECOMMENDATION(S): 1: Clinical correlation recommended LEFT Resume screening -------- FINAL REPORT -------- Dictated By: Sixto Bravo Dictated Date: 04/13/2024 11:27 ET Assigned Physician: Sixto Bravo Reviewed and Electronically Signed By: Sixto Bravo Signed Date: 04/13/2024 11:31 ET Workstation ID: [id number] Transcribed By: Self Edit Transcribed Date: 04/13/2024 11:27 ET Narrative 04/13/2024 11:31 AM EST EXAM: ??DIAGNOSTIC MAMMOGRAPHY, UNILATERAL LEFT ULTRASOUND: DIAGNOSTIC ULTRASOUND, UNILATERAL LEFT HISTORY: ??Abnormal clinical breast exam. ??Left breast pain inferiorly from the 4 o'clock to the 7 o'clock position. Patient reports remote excision left breast 30 years ago for a benign process COMPARISON: ??Left mammography 12/06/2023, 2022, 11/15/2021, 10/12/2020 TECHNIQUE: Synthesized views of the left breast in the CC and MLO projections. ??Tomosynthesis of the left breast in the CC and MLO projections. ADDITIONAL IMAGING: None High-frequency linear transducer ultrasound of the left breast targeted to the area of clinical concern. Computer-aided detection was employed with the iCAD ??profound AI 3-D. TISSUE DENSITY: The breasts are heterogeneously dense, which may obscure small masses. (BI-RADS category C) FINDINGS: MAMMOGRAPHY: LEFT BREAST: There is no suspicious finding in the inferior left breast which might correlate with the patient's symptoms. ?? No suspicious change in the region of a biopsy site marker. ULTRASOUND: LEFT BREAST The entire inferior left breast was examined with a high-frequency linear transducer. The symptoms correlate to the inframammary fold and region of the chest wall No suspicious mass. ??No suspicious area of altered echotexture Procedure Note Sixto Bravo MD - 04/13/2024 EXAM: DIAGNOSTIC MAMMOGRAPHY, UNILATERAL LEFT ULTRASOUND: DIAGNOSTIC ULTRASOUND, UNILATERAL LEFT HISTORY: Abnormal clinical breast exam. Left breast pain inferiorly fromthe 4 o'clock to the 7 o'clock position. Patient reports remote excision left breast 30 years ago for a benignprocess COMPARISON: Left mammography 12/06/2023, 2022, 11/15/2021,10/12/2020 TECHNIQUE: Synthesized views of the left breast in the CC and MLOprojections. Tomosynthesis of the left breast in the CC and MLOprojections. ADDITIONAL IMAGING: None High-frequency linear transducer ultrasound of the left breast targeted tothe area of clinical concern. Computer-aided detection was employed with the [employer] 3-D. TISSUE DENSITY: The breasts are heterogeneously dense, which may obscuresmall masses. (BI-RADS category C) FINDINGS: MAMMOGRAPHY: LEFT BREAST: There is no suspicious finding in the inferior left breast which mightcorrelate with the patient's symptoms. No suspicious change in the region of a biopsy site marker. ULTRASOUND: LEFT BREAST The entire inferior left breast was examined with a high-frequency lineartransducer. The symptoms correlate to the inframammary fold and region of the chestwall No suspicious mass. No suspicious area of altered echotexture IMPRESSION: No mammographic or sonographic evidence of malignancy No suspicious interval change The pain should be managed on the basis of the clinical breast exam ASSESSMENT: BI-RADS 1: NEGATIVE RECOMMENDATION(S): 1: Clinical correlation recommended LEFT Resume screening -------- FINAL REPORT -------- Dictated By: Sixto Bravo Dictated Date: 04/13/2024 11:27 ET Assigned Physician: Sixto Bravo Reviewed and Electronically Signed By: Sixto Bravo Signed Date: 04/13/2024 11:31 ET Workstation ID: [id number] Transcribed By: Self Edit Transcribed Date: 04/13/2024 11:27 ET Constance Del Castillo MD [facility] US PROCEDURES Final Resu lt * BD Bone Density DXA Axial Skeleton (04/13/2024 10:59 AM EST) Anatomical Region Laterality Modality Wrist, Hip, L-spine Bone Densito metry 04/13/2024 1:31 PM EST Impressions 04/13/2024 1:32 PM EST Osteoporosis. ? Telerad ROSE ([id number]) -------- FINAL REPORT -------- Dictated By: Abril Raknin Dictated Date: 04/13/2024 13:31 ET Assigned Physician: Abril Rankin Reviewed and Electronically Signed By: Abril Rankin Signed Date: 04/13/2024 13:32 ET Workstation ID: [id number] Transcribed By: Self Edit Transcribed Date: 04/13/2024 13:31 ET Narrative 04/13/2024 1:32 PM EST History: Low estrogen state due to menopause. Personal history of fracture. Comparison: 03/13/23 Findings: Bone densitometry is performed utilizing dual energy x-ray absorptiometry (DXA) in the [employer] unit. The lumbar spine and proximal femora are evaluated in the AP projection. The FRAX questionaire was completed. The results indicate osteoporosis, with a left femoral neck T-score of -3.5. The Z score is -1.5, indicating low bone mineral density for age. There has been a statistically significant decrease in bone mineral density in the spine since the previous study. ??The detailed DEXA report will be mailed to the referring physician's office. DualFemur FRAX: 10-year Probability of Fracture: Major Osteoporotic 32.5 percent ??Hip 14.2 percent. Procedure Note Abril Rankin MD - 04/13/2024 History: Low estrogen state due to menopause. Personal history offracture. Comparison: 03/13/23 Findings: Bone densitometry is performed utilizing dual energy x-ray absorptiometry(DXA) in the [employer] unit. The lumbar spine and proximal femora areevaluated in the AP projection. The FRAX questionaire was completed. The results indicate osteoporosis, with a left femoral neck T-score of-3.5. The Z score is -1.5, indicating low bone mineral density for age. There has been a statistically significant decrease in bone mineraldensity in the spine since the previous study. The detailed DEXA reportwill be mailed to the referring physician's office. DualFemur FRAX: 10-year Probability of Fracture: Major Osteoporotic 32.5percent Hip 14.2 percent. IMPRESSION: Osteoporosis. Guillermo ROSE ([id number]) -------- FINAL REPORT -------- Dictated By: Abril Rankin Dictated Date: 04/13/2024 13:31 ET Assigned Physician: Abril Rankin Reviewed and Electronically Signed By: Abril Rankin Signed Date: 04/13/2024 13:32 ET Workstation ID: [id number] Transcribed By: Self Edit Transcribed Date: 04/13/2024 13:31 ET Shaka ROSE IMG DXA PROCEDURES Final Resul t * (ABNORMAL) Lipid panel with reflex to direct LDL (03/24/2024 11:27 AM EST) Cholesterol 217(H) 0 - 200 mg/dL LAB CHEMISTRY METHOD 03/24/2024 3:11 PM [facility] Triglycerides 88 0 - 150 mg/dL LAB CHEMISTRY METHOD 03/24/2024 3:11 PM [facility] HDL 83 >=40 mg/dL LAB CHEMISTRY METHOD 03/24/2024 3:11 PM [facility] LDL Calculated 116(H) 0 - 100 mg/dL LAB CHEMISTRY METHOD 03/24/2024 3:11 PM [facility] VLDL Cholesterol Que 17.6 mg/dL LAB CHEMISTRY METHOD 03/24/2024 3:11 PM [facility] Non HDL Chol. (LDL+VLDL) 134 <145 mg/dL LAB CHEMISTRY METHOD 03/24/2024 3:11 PM [facility] Chol/HDL Ratio 2.6 0.0 - 4.4 LAB CHEMISTRY METHOD 03/24/2024 3:11 PM [facility] Blood Venous blood specimen / Unknown Venipuncture / Unknown 03/24/2024 11:27 AM EST 03/24/2024 11:27 AM EST Shaka ROSE LAB BLOOD ORDERABLES Final Res ult [facility] ([facility] [address] [place] [address], * Vitamin D 1,25 dihydroxy (03/24/2024 11:27 AM EST) Vitamin D, 1, 25-Dihydroxy 69 20 - 79 pg/mL 03/29/2024 7:31 PM EST [facility] Comment: Vitamin D 1, 25 dihydroxy levels should be primarily used to assess Vitamin D status in patients with renal disease and hypercalcemia. Vitamin D 1,25-dihydroxy levels are generally less than 5 pg/mL in end stage renal disease patients. The preferred initial test for assessing Vitamin D status in the general population is Vitamin D 25-hydroxy (VITD). Test performed at [facility], [address] , [place], [place] ??[address] ? [phone] Echo Tran MD, PhD - Charge Account Authorizer Blood Venous blood specimen / Unknown Venipuncture / Unknown 03/24/2024 11:27 AM EST 03/24/2024 11:27 AM EST Shaka Bhargav ROSE LAB BLOOD ORDERABLES Final Res ult Performing Organization Address City/[facility]/ZIP Co de Phone Number [facility] [address] [place] [address] * (ABNORMAL) [id number], RSV, Influenza A and B qualitative RT-PCR (03/15/2024 12:46 PM EST) SARS COV-2 Detected(A ) Not Detected LAB MOLECULAR DIAGNOSTICS METHOD 03/16/2024 9:17 AM EST [facility] Comment: Disclaimer: The manner in which this information is used to guide patient care is the responsibility of the healthcare provider. Testing was performed using the [employer] m SARS-CoV-2 test. This test has been authorized by FDA under an Emergency Use Authorization (EUA). This test is only authorized for the duration of time the declaration that circumstances exist justifying the authorization of the emergency use of in vitro diagnostic tests for detection of SARS-CoV-2 virus and/or diagnosis of COVID-19 infection under section 564(b)(1) of the Act, 21 U.S.C. 360bbb- 3(b)(1), unless the authorization is terminated or revoked sooner. Fact sheet for Healthcare Providers can be found at: https://www.fda.gov/media/583159/download Fact sheet for Patients can be found at: https://www.fda.gov/media/363789/download Influenza A PCR Not Detected Not Detected LAB MOLECULAR DIAGNOSTICS METHOD 03/16/2024 9:17 AM [facility] Influenza B PCR Not Detected Not Detected LAB MOLECULAR DIAGNOSTICS METHOD 03/16/2024 9:17 AM [facility] RSV PCR Not Detected Not Detected LAB MOLECULAR DIAGNOSTICS METHOD 03/16/2024 9:17 AM [facility] Swab Nasopharyngeal structure / Unknown Non-blood Collection / Unknown 03/15/2024 12:46 PM EST 03/15/2024 12:47 PM EST Shaka ROSE LAB MICROBIOLOGY - GENERAL ORD ERABLES Final Result [facility] [address] [place] [address], * Comprehensive metabolic panel (03/15/2024 12:31 PM EST) Sodium 138 133 - 145 mmol/L LAB CHEMISTRY METHOD 03/15/2024 5:34 PM [facility] Potassium 3.7 3.5 - 5.5 mmol/L LAB CHEMISTRY METHOD 03/15/2024 5:34 PM [facility] Chloride 106 96 - 110 mmol/L LAB CHEMISTRY METHOD 03/15/2024 5:34 PM [facility] CO2 25 21 - 32 mmol/L LAB CHEMISTRY METHOD 03/15/2024 5:34 PM [facility] Anion Gap 7 3 - 11 LAB CHEMISTRY METHOD 03/15/2024 5:34 PM [facility] Glucose 84 70 - 100 mg/dL LAB CHEMISTRY METHOD 03/15/2024 5:34 PM [facility] BUN 21 5 - 25 mg/dL LAB CHEMISTRY METHOD 03/15/2024 5:34 PM [facility] Creatinine 0.62 0.50 - 1.10 mg/dL LAB CHEMISTRY METHOD 03/15/2024 5:34 PM [facility] eGFR 95 >=60 mL/min/1. 73m2 LAB CHEMISTRY METHOD 03/15/2024 5:34 PM [facility] Comment:Calculation based on the??Chronic Kidney Disease Epidemiology Collaboration (CKD-EPI) equation refit??without adjustment for race. BUN/Creatinine Ratio 33.9 LAB CHEMISTRY METHOD 03/15/2024 5:34 PM [facility] Calcium 9.1 8.5 - 10.5 mg/dL LAB CHEMISTRY METHOD 03/15/2024 5:34 PM [facility] AST (SGOT) 20 10 - 42 unit/L LAB CHEMISTRY METHOD 03/15/2024 5:34 PM [facility] ALT (SGPT) 24 10 - 60 unit/L LAB CHEMISTRY METHOD 03/15/2024 5:34 PM [facility] Alkaline Phosphatase 90 42 - 121 unit/L LAB CHEMISTRY METHOD 03/15/2024 5:34 PM [facility] Total Protein 7.1 6.0 - 8.0 g/dL LAB CHEMISTRY METHOD 03/15/2024 5:34 PM [facility] Albumin 4.3 3.2 - 5.0 g/dL LAB CHEMISTRY METHOD 03/15/2024 5:34 PM [facility] Total Bilirubin 0.5 0.0 - 1.4 mg/dL LAB CHEMISTRY METHOD 03/15/2024 5:34 PM EST [facility] Blood Venous blood specimen / Unknown Venipuncture / Unknown 03/15/2024 12:31 PM EST 03/15/2024 12:31 PM EST us Shaka ROSE LAB BLOOD ORDERABLES Final Res ult [facility]) [facility] [address] [place] [address], * XR Chest 2 Views (02/20/2024 10:37 AM EST) Anatomical Region Laterality Modality Body Radiographic Stacie ging 02/20/2024 10:4 5 AM EST Impressions 02/20/2024 10:46 AM EST No acute abnormality. -------- FINAL REPORT -------- Dictated By: Chi Pisano Dictated Date: 02/20/2024 10:45 ET Assigned Physician: Chi Pisano Reviewed and Electronically Signed By: Chi Pisano Signed Date: 02/20/2024 10:46 ET Workstation ID: [id number] Transcribed By: Self Edit Transcribed Date: 02/20/2024 10:45 ET Narrative 02/20/2024 10:46 AM EST XR CHEST 2 VIEWS Reason: cough Comparison: Chest radiograph on April 02, 2022 FINDINGS: Lungs: Hyperinflated lungs. No focal consolidation or pulmonary edema. Pleura: No pleural effusion or pneumothorax. Heart/Mediastinum: Cardiomediastinal silhouette is within normal limits. Bones : No acute findings. Procedure Note Chi Pisano MD - 02/20/2024 XR CHEST 2 VIEWS Reason: cough Comparison: Chest radiograph on April 02, 2022 FINDINGS: Lungs: Hyperinflated lungs. No focal consolidation or pulmonary edema. Pleura: No pleural effusion or pneumothorax. Heart/Mediastinum: Cardiomediastinal silhouette is within normal limits. Bones : No acute findings. IMPRESSION: No acute abnormality. -------- FINAL REPORT -------- Dictated By: Chi Pisano Dictated Date: 02/20/2024 10:45 ET Assigned Physician: Chi Pisano Reviewed and Electronically Signed By: Chi Pisano Signed Date: 02/20/2024 10:46 ET Workstation ID: [id number] Transcribed By: Self Edit Transcribed Date: 02/20/2024 10:45 ET Linda Leung [employer] IMG XR PROCEDURES Final Result * Colonoscopy (06/10/2022) Colonoscopy no interpretation , abstracted Anatomical Region Laterality Modality Other Historical Provider HEALTH MAINTENANCE Final Result * Hepatitis C Screening (01/06/2019) Hepatitis C Screening abstracted Historical Provider HEALTH MAINTENANCE Final Result from Last 3 Months or Most Recently Relevant to Health Maintenance Insurance [employer] - [place] MEDICARE ADVANTAGE Advance Directives Documents on File Type Date Recorded Patient Tube Test Technician Expl anation Health Care Decision (hx) 04/06/2013 AD HUSSEIN DIRECTIVE Health Care Decision (hx) 04/06/2013 AD HUSSEIN DIRECTIVE Health Care Decision (hx) 04/06/2013 AD HUSSEIN DIRECTIVE Health Care Decision (hx) 04/06/2013 AD HUSSEIN DIRECTIVE Health Care Decision (hx) 04/06/2013 AD HUSSEIN DIRECTIVE Health Care Decision (hx) 04/06/2013 AD HUSSEIN DIRECTIVE Health Care Decision (hx) 04/06/2013 AD HUSSEIN DIRECTIVE Health Care Decision (hx) 04/06/2013 AD HUSSEIN DIRECTIVE Health Care Decision (hx) 04/06/2013 AD HUSSEIN DIRECTIVE Health Care Decision (hx) 04/06/2013 AD HUSSEIN DIRECTIVE Health Care Decision (hx) 04/06/2013 AD HUSSEIN DIRECTIVE Health Care Decision (hx) 04/06/2013 AD HUSSEIN DIRECTIVE Health Care Decision (hx) 04/06/2013 AD HUSSEIN DIRECTIVE Health Care Decision (hx) 04/06/2013 AD HUSSEIN DIRECTIVE Health Care Decision (hx) 04/06/2013 AD HUSSEIN DIRECTIVE Health Care Decision (hx) 04/06/2013 AD HUSSEIN DIRECTIVE Health Care Decision (hx) 04/06/2013 AD HUSSEIN DIRECTIVE Health Care Decision (hx) 04/06/2013 AD HUSSEIN DIRECTIVE Health Care Decision (hx) 04/06/2013 AD HUSSEIN DIRECTIVE Health Care Decision (hx) 04/06/2013 AD HUSSEIN DIRECTIVE Health Care Decision (hx) 04/06/2013 AD HUSSEIN DIRECTIVE Health Care Decision (hx) 04/06/2013 AD HUSSEIN DIRECTIVE Care Teams Farm Management Adviser Relationship Specialty Start Date End Date Heena Santos MD [address] [place] [id number] PCP - General Internal Medicine 05/18/13
== END 2024-05-20 10:47 | disposition home or self-care (01) ==
PROVIDERS: PCP Internal Medicine; Visit Provider Physical Medicine & Rehabilitation
DX: M70.61 Trochanteric bursitis, right hip (principal); G57.01 Lesion of sciatic nerve, right lower limb
CPT/HCPCS: 20552; 20610; 99214

== ENCOUNTER → 2024-05-20 10:04 | Outpatient (BNVA) | payer BC, SELFPAY | PROVIDERS: PCP Internal Medicine; Visit Provider Physical Medicine & Rehabilitation | DX: M70.61 Trochanteric bursitis, right hip (principal); G57.01 Lesion of sciatic nerve, right lower limb; M79.18 Myalgia, other site; M54.16 Radiculopathy, lumbar region | CPT/HCPCS: 20552; 20610; J2003; J3301 ==

== ENCOUNTER 2025-02-28 11:33 | Outpatient (AMB) | payer BC, SELFPAY ==
--- NOTE | 2025-02-28 11:34 | A.PHYSOV_ITS ---
Vital Signs 02/28/25 11:35 Height 5 ft 2 in Weight 115 lb BMI 21.0 Intake Visit Reasons: 2M FUV Intake Note: Patient is a 74 year old female here today for a 2 month follow up. Allergies bee pollen (bees) Allergy (Unknown, Verified 02/28/25 11:36) Unknown cat dander Allergy (Unknown, Verified 02/28/25 11:36) Unknown HPI Comments Details: History of Present Illness The patient is a 74 year old female presenting for management of chronic low back pain and a medication refill. She has a history of severe right-sided spinal stenosis, and her pain is consistently on the right side. She reports a recent acute exacerbation of pain after attempting to shovel heavy snow and opening a heavy sliding door. In the past, the patient has received injections that provided relief, though the effect of the last one has worn off. She has also used oral steroids for severe flare-ups, which she found effective but dislikes taking. The patient also has a history of nerve damage in her right foot. She was previously on gabapentin 600 mg but discontinued it a month ago because she did not find it very effective and it negatively affected her focus. She was unwilling to increase the dose to the recommended 1,800 mg. She notes some foot and toe pain in the morning since stopping the medication, but it subsides after walking. The patient's health insurance is changing from [employer] to [email or web address] at the start of the year. Her goal for the coming year is to strengthen her core. Pain Description - Location: Pain is primarily on the right side, localized to the low back and buttock area. - Character: The patient describes the current flare-up as terrible pain . - Exacerbating factors: Pain is worsened by activities such as shoveling snow and opening a heavy door. - Associated Symptoms: She also reports pain in her right foot and toes in the morning, which subsides after about an hour of walking. - Relieving factors: Past steroid injections, oral steroids, and a combination of ice and heat have provided relief. Procedure: Bilateral trochanteric bursal injection 09/02/2024 Right SI joint injection September 2024 50% reduction of her pain Right L5 TFESI 11/01/2024 50% reduction of her pain Results - Imaging: Mention of prior imaging shows severe stenosis on the right side. 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 - Neurological: Reports a history of nerve damage in the right foot. - Reports pain in the right foot and toes upon waking since discontinuing gabapentin. Physical Exam Exam Exam: Physical Exam Lumbar Spine: Examination of the lumbar spine, there is no visible swelling or deformity. She is tender to the right SI joint and lower lumbar facets. Full range of motion of the lumbar spine. She does have an increase in pain with facet loading. Special Tests: Lhermittes sign was negative Heel Toe walk is normal Left straight leg raise: Negative Right straight leg raise: Negative Special tests Bree test is positive right Ganslen's test is positive right SI Joint compression positive right Amina test negative Piriformis stretch is negative Lower Extremities: Full range of motion bilateral lower extremities. No calf pain or edema. Neuro: Sensation: Intact to lower extremities bilaterally Strength L2 (Psoas): 5/5 on the left and 5/5 on the right. L3 (Quads): 5/5 on the left and 5/5 on the right. L4 (Ant tibialis): 5/5 on the left and 5/5 on the right. L5 (EHL) 5/5 on the left and 5/5 on the right. S1 (Gastroc): 5/5 on the left and 5/5 on the right. DTR L4: (Patellar) Left 1 Right 1 S1: (Achilles) Left 1 Right 1 Babinski Downgoing No pathologic clonus. No involuntary movement. Vital Signs: BMI result Body Mass Index 21.0 Assessment & Plan Assessment & Plan (1) Lumbar spondylosis: Code(s): M47.816 - Spondylosis without myelopathy or radiculopathy, lumbar region Category: Medical (2) Lumbar radiculopathy: Code(s): M54.16 - Radiculopathy, lumbar region Category: Medical Plan Pain Management - Analgesia: The patient is requesting a refill of her pain medication. - Activities of Daily Living: Her pain limits certain activities such as shoveling snow and opening a heavy door. - Adverse Effects: The patient discontinued gabapentin due to it affecting her focus. - Aberrant Drug Related Behaviors: No aberrant drug-related behaviors noted. Plan Patient was informed and verbally consented to the use of an ambient scribe for clinic note documentation during this visit. 1. Chronic Low Back Pain With Acute Exacerbation The patient's acute flare-up is secondary to mechanical strain on her known severe right-sided spinal stenosis. The plan is to send a prescription for her pain medication. A lumbar steroid injection was discussed, as it has been effective for her in the past, but it will be deferred until after the new year due to an insurance change and patient scheduling. The patient will follow up in approximately two months, at which time an order for the injection can be placed under her new insurance. She may benefit from right L5 TFESI versus right SI joint injection dependent upon presentation. She was advised against a muscle relaxer due to increased fall risk in combination with her opioid medication. Home care instructions included using heat first, followed by ice. 2. Neuropathy Of Right Foot The patient has discontinued gabapentin due to side effects including impaired focus and a perceived lack of efficacy. The patient's decision is supported, and no alternative medication was prescribed at this time. The plan is to continue monitoring her symptoms off the medication. Discussion Notes I discussed the patient's acute flare-up of her chronic right-sided low back pain, which is related to her known severe stenosis and was triggered by physical exertion. We reviewed treatment options, including another lumbar steroid injection. We agreed to postpone the injection until after her insurance changes in the new year, and I explained she would need a new office visit to facilitate the authorization with her new carrier, [email or web address]. I will send a refill for her current pain medication. I acknowledged her decision to stop gabapentin due to side effects affecting her focus. When she inquired about muscle relaxers, I advised against them, explaining the contraindication in her age group and the increased fall risk when taken with her pain medication. I instructed her on home care, recommending she apply heat first, then ice, to the affected area. The plan is for her to follow up in two months for medication management and to proceed with ordering the lumbar injection. Patient Instructions - I have sent a refill for your pain medication to the pharmacy. - For your back pain, use a heating pad on the area first, and then follow it with an ice pack. - Be gentle with your back for the next few days to help it heal. - Do not take a muscle relaxer with your pain medication, as it can make you dizzy and increase your risk of falling. - Please schedule a follow-up appointment for about two months from now (around April). - At your next visit, we will order the steroid injection for your back under your new insurance plan. Medications: New oxycodone-acetaminophen 5-325 mg (Percocet) Partial Fill upon patient request. 1 tab PO Q4H PRN 28 tabs 0RF pain 7 days M47.816 - Spondylosis without myelopathy or radiculopathy, lumbar region, M54.16 - Radiculopathy, lumbar region Coding Level of Care Code Tele Est Pt Level 3 (19388) Diagnoses Lumbar spondylosis M47.816 Lumbar radiculopathy M54.16
[2025-02-28 11:35] VITALS: BMI 21.0
== END 2025-02-28 11:58 | disposition home or self-care (01) ==
LOC: HO.HPHYS 11:34
PROVIDERS: PCP Internal Medicine; Visit Provider Physician Assistant
DX: M47.816 Spondylosis without myelopathy or radiculopathy, lumbar region (principal); M54.16 Radiculopathy, lumbar region
CPT/HCPCS: 99213